=== PATIENT | male | born 1975 | race Native Hawaiian/Other Pacific Islander ===

== ENCOUNTER 2020-09-13 06:08 | Outpatient (REF) | payer OTHER, SELFPAY ==
[2020-09-13 07:32] LABS: Alanine Aminotransferase 15 U/L (0-40); Albumin Level 4.5 g/dL (3.5-5.0); Alkaline Phosphatase 87 U/L (39-117); Anion Gap 10 (12-20); Aspartate Amino Transferase 16 U/L (5-37); Bilirubin Total 1.1 mg/dL (0.0-1.0); Blood Urea Nitrogen 13 mg/dL (9-16); Calcium 9.4 mg/dL (8.4-10.2); Carbon Dioxide 31 mmol/L (22-29); Chloride 104 mmol/L (96-108); Cholesterol 138 mg/dL; Estimated Glomerular Filt Rate > 60; Glucose Fasting 92 mg/dL (60-99); HDL Cholesterol 33 mg/dL; LDL Cholesterol Calculated 83 mg/dl; Potassium 4.8 mmol/L (3.3-5.1); Sodium 140 mmol/L (135-145); Total Protein 7.4 g/dL (6.5-8.0); Triglycerides 112 mg/dL
[2020-09-13 07:33] LABS: Estimated Average Glucose 105 mg/dL; Hemoglobin A1c % 5.3 %
[2020-09-13 07:55] LABS: TSH reflex Free T4 0.73 uIU/mL (0.32-4.0)
== END 2020-09-13 06:09 | disposition home or self-care (01) ==
LOC: HO.LAB 06:08
PROVIDERS: PCP Physician Assistant; Visit Provider Physician Assistant
DX: Z13.1 Encounter for screening for diabetes mellitus (principal); I10 Essential (primary) hypertension; E78.5 Hyperlipidemia, unspecified; E66.09 Other obesity due to excess calories; Z68.35 Body mass index [BMI] 35.0-35.9, adult
CPT/HCPCS: 36415; 80053; 80061; 83036; 84443

== ENCOUNTER 2022-04-22 07:40 | Outpatient (REF) | payer OTHER, SELFPAY ==
[2022-04-22 08:00] LABS: Hematocrit 47.8 % (42.0-52.0); Hemoglobin 15.9 g/dl (14.0-18.0); Mean Corpuscular HGB Conc 33.3 g/dl (31.0-36.0); Mean Corpuscular Hemoglobin 30.8 pg (27.0-33.0); Mean Corpuscular Volume 92.6 fL (80.0-98.0); Mean Platelet Volume 8.5 fL (9.4-12.4); Platelet Count 247 X10*3/uL (160-400); Red Blood Count 5.16 X10*6/uL (4.60-5.80); Red Cell Distribution Width 12.7 % (11.0-16.0); White Blood Count 10.9 X10*3/uL (4.8-10.8)
[2022-04-22 08:38] LABS: Alanine Aminotransferase 20 U/L (0-40); Albumin Level 4.4 g/dL (3.5-5.0); Alkaline Phosphatase 85 U/L (39-117); Anion Gap 14 (12-20); Aspartate Amino Transferase 18 U/L (5-37); Bilirubin Total 0.7 mg/dL (0.0-1.0); Blood Urea Nitrogen 13 mg/dL (9-16); Calcium 9.4 mg/dL (8.4-10.2); Carbon Dioxide 24 mmol/L (22-29); Chloride 108 mmol/L (96-108); Cholesterol 145 mg/dL; Estimated Glomerular Filt Rate > 60; Glucose Fasting 95 mg/dL (60-99); HDL Cholesterol 36 mg/dL; LDL Cholesterol Calculated 88 mg/dl; Potassium 4.7 mmol/L (3.3-5.1); Sodium 141 mmol/L (135-145); Total Protein 7.1 g/dL (6.5-8.0); Triglycerides 108 mg/dL
[2022-04-22 08:44] LABS: Prostate Specific Antigen Scr 0.97 ng/mL (<0.05-4.0); TSH reflex Free T4 0.46 uIU/mL (0.32-4.0)
== END 2022-04-22 07:41 | disposition home or self-care (01) ==
LOC: HO.LAB 07:40
PROVIDERS: PCP Physician Assistant; Visit Provider Physician Assistant
DX: Z13.1 Encounter for screening for diabetes mellitus (principal); Z12.5 Encounter for screening for malignant neoplasm of prostate
CPT/HCPCS: 36415; 80053; 80061; 84153; 84443; 85027

== ENCOUNTER → 2022-07-03 14:34 | Outpatient (BNVA) | payer OTHER, SELFPAY | PROVIDERS: PCP Physician Assistant; Visit Provider Internal Medicine | DX: Z13.89 Encounter for screening for other disorder (principal) ==

== ENCOUNTER 2022-08-20 06:36 | Day surgery (SDC) | payer OTHER, SELFPAY ==
[2022-08-13 14:43] VITALS: BMI 35.4
[2022-08-20] MEDS: Lactated Ringers 1,000 ML 50 ML IVCONT (06:58)
[2022-08-20 07:11] VITALS: BP 121/84; PULSE 67; RESP 18; TEMP 36.7; O2SAT 96
--- NOTE | 2022-08-20 07:49 | MHC.SHP ---
Pre-Procedural Eval Section A Date of Service: 08/20/22 Section B Chief Complaint: Abnormal weight loss Details of Present Illness: Medical History Umbilical hernia Surgical History History of appendectomy Relevant Family History (Specify if Yes): No Relevant Social History: None Present Medications: see Short Stay Collaborative assessment Allergies: Allergies Allergy/AdvReac Type Severity Reaction Status Date / Time Penicillins [PENICILLINS] Allergy Unknown UNKOWN Verified 08/20/22 06:50 Review of Systems Review of Systems Comment: 10 point ROS as above Exam Exam Comment: Gen appear: No acute distress HEENT: no icterus Chest: No overt resp distress Abd: soft, nontender, nondistended Psych: Stable affect, answering questions appropriately Neuro: A/Ox3 noted to move all extremities spontaneously Ext: no peripheral edema Plan Diagnosis/Plan: Unchanged I have reviewed the history and physical and performed a pertinent physical examination on my patient. No changes have occurred unless specified. Time Spent With Patient Time: Total time managing care of this patient today ____ minutes.
--- NOTE | 2022-08-20 07:51 | P.OP_ITS ---
Operative Note Operative Note Date of Service: 08/20/22 Narrative: Procedure:?Esophagogastroduodenoscopy and Colonoscopy Indication:?Dysphagia, positive cologuard Endoscopist:?Padmini Neil Anesthesia Provider:?Dr Lizeth Gregg Anesthesia type:?MAC Instrument:?Olympus GIF-H190, PCF-H190L EGD Procedure:?? The procedure, indications, preparation and potential complications were reviewed with the patient, who indicated understanding and gave written informed consent to proceed. A physical exam was performed. The endoscope was introduced through the mouth, and advanced to the second part of the duodenum. The mucosa was carefully examined on slow withdrawal of the endoscope. The patient tolerated the procedure well. There were no immediate complications.? ? EGD Findings:? * Esophagus:?Normal esophageal mucosa. The Z line was at 42 cm and irregular but less than < 1cm. There was a hiatal hernia with with the diaphragmatic pinch at 45 cm. * Stomach:? Erosions and ulceration was noted in the antrum. Random cold forceps biopsies were obtained to rule out H pylori. Retroflexion confirmed the size and morphology of the hernia with grade I Hill classification. * Duodenum:? Normal mucosa was noted in the whole of the examined duodenum. Cold forceps biopsies were up pain from the duodenal bulb and 2nd part of the duodenum to rule out celiac sprue. Colonoscopy Procedure:? The patient was then turned for the colonoscopy. A digital rectal exam was performed which was normal. The colonoscope was then inserted through the anus and advanced through the colon to the cecum at 80 cm. Appendiceal orifice and ileocecal valve are identified. Mucosa was carefully examined under high definition white light as the instrument was slowly withdrawn in a retrograde panoramic fashion. Ascending colon was intubated twice. Retroflexion was performed in rectum. The procedure was not difficult. There were no immediate obvious complications. The quality of the prep was BBPS: 3+2+3 = adequate Withdrawal time 12 minutes. Limitations: No limitations.? Findings: Mucosa: Normal to cecum. Protruding lesions: * Medium internal hemorrhoids without stigmata of recent bleeding. Excavated lesions: * Mild to moderate diverticulosis of sigmoid colon. Impression:? * Normal esophagus * Hiatal hernia * Gastritis (biopsy) * Normal duodenum (biopsy) * Good prep * Normal colon mucosa * Diverticulosis * Internal hemorrhoids Recommendations:?? * Follow path results. * If H pylori noted on histology, eradication therapy will be prescribed. * Avoid NSAIDs * Repeat colonoscopy in 10 years for asymptomatic CRC screening. ? This was reviewed with the patient.
[2022-08-20 08:30] VITALS: BP 108/61; PULSE 86; RESP 18; TEMP 36.3; O2SAT 108
[2022-08-20 08:45] VITALS: BP 102/62; PULSE 86; RESP 18; TEMP 36.1; O2SAT 99
--- NOTE | 2022-08-20 09:06 | P.CONAN_ITS ---
[facility] Active Problems Active Problems: All Active Problems (Updated 08/13/22 @ 14:18 by Sari Childers RN) Lumbar radicular pain (Acute) Erectile dysfunction (Acute) Screening for diabetes mellitus (DM) (Acute) Obese (Acute) Pharyngitis (Acute) Smoker (Acute) GERD (gastroesophageal reflux disease) (Acute) Acute exacerbation of chronic low back pain (Acute) Depression (Acute) Screening for colon cancer (Acute) Adult general medical exam (Acute) Unintentional weight loss (Acute) Early satiety (Acute) Past Medical History Medical History Depression GERD (gastroesophageal reflux disease) Low back pain Umbilical hernia Family History Family History Father No problems noted. Mother Osteoarthritis Maternal Aunt Cancer Family history of problems with anesthesia: No Surgical History Surgical History History of appendectomy History of Problems with Anesthesia: No Social History Social History Housing: House Are you a primary rn progressive care unit to a significant other at home: No Do you presently have visiting nurse or other home services: No Alcohol intake: current Alcohol intake frequency: holidays/special occasions only Patient Tobacco Use Status: Current everyday Tobacco user Tobacco use type: Cigarette Cigarettes Per Day: 6 Years Smoked: 30 e-Cigarette/Vaping Use: Never Used Use of substances other than those prescribed or required for medical reasons: No Have you been hit, kicked, punched, or otherwise hurt by someone within the past year? If so, by whom?: No Are you DNR?: No Advance Directives: No Advance Directives Information Provided: Yes (brochure mailed) Advance Directives on File: No Recently lost weight without trying: Yes How much weight loss: 2-13 pounds Eating poorly because of decreased appetite: No Nutrition screen score: 3 Nutrition Risks: No Nutritional Risk Poor oral hygiene: No service: No Current occupational status: employed Cognitive needs: No Hearing needs: No Vision needs: No Meds Allergies Allergy/AdvReac Type Severity Reaction Status Date / Time Penicillins [PENICILLINS] Allergy Unknown UNKOWN Verified 08/20/22 06:50 Active Medications: Current Medications Lactated Ringer's (Lr) 1,000 mls @ 50 mls/hr IVCONT .Q20H MARGOTH Last Admin: 08/20/22 06:58 Dose: 50 mls/hr Home Medications Medication Instructions Recorded Confirmed Last Taken Type tramadol 50 mg tablet 50 mg PO BID 07/03/22 08/13/22 Unknown History buspirone 5 mg tablet 1 tab PO BID anxiety 08/20/22 08/20/22 08/20/22 History Exam Exam Date and Time: August 20, 2022 0906 Height,Weight and Vital Signs: Height 5 ft 11 in Weight 115.212 kg Last Vital Signs Temp 97.0 F 08/20/22 08:45 Pulse 86 08/20/22 08:45 Resp 18 08/20/22 08:45 BP 102/62 08/20/22 08:45 Pulse Ox 99 08/20/22 08:45 O2 Del Method 08/20/22 08:45 O2 Flow Rate 6 08/20/22 08:30 Airway Mallampati Class: I TM Dist: >3cm Neck ROM: Full Heart: RR Lungs: cta Assessment and Plan Assessment Anesthesia Assessment: Anesthesia Plan Discussed Final Anesthetic Review Family History of Problems with Anesthesia: No History of Problems with Anesthesia: No NPO: Yes ASA Class: II Final Preanesthetic Review: No Changes in Pt Med Stat, Meds/Allgs Chart Reviewed, Consent Obtained/Reviewed and Anes Risks/Benef Reviewed Patient Risk: Low Procedure Risk: Low Assessment/Block/Sedation in SS: Assess/Block/Sedation-SS Anesthetic Plan Anesthetic Plan: MAC: Disposition: Standard PACU
== END 2022-08-20 09:25 | disposition home or self-care (01) ==
PROVIDERS: PCP Physician Assistant; Visit Provider Internal Medicine
PROC: (CPT 45378; principal; 2022-08-20 07:30)
DX: R19.5 Other fecal abnormalities (principal); K57.30 Diverticulosis of large intestine without perforation or abscess without bleeding; K64.8 Other hemorrhoids; R63.4 Abnormal weight loss; R13.10 Dysphagia, unspecified; K22.89 Other specified disease of esophagus; K21.9 Gastro-esophageal reflux disease without esophagitis; K29.50 Unspecified chronic gastritis without bleeding; B96.81 Helicobacter pylori [H. pylori] as the cause of diseases classified elsewhere; K44.9 Diaphragmatic hernia without obstruction or gangrene; K42.9 Umbilical hernia without obstruction or gangrene; Z79.899 Other long term (current) drug therapy; Z88.0 Allergy status to penicillin; F17.210 Nicotine dependence, cigarettes, uncomplicated
CPT/HCPCS: 45378; 43239; 88305; 88342

== ENCOUNTER → 2022-09-04 13:49 | Outpatient (BNVA) | payer OTHER, SELFPAY | PROVIDERS: PCP Physician Assistant; Visit Provider Internal Medicine | DX: Z13.89 Encounter for screening for other disorder (principal) ==

== ENCOUNTER 2022-09-21 09:06 | Outpatient (REF) | payer OTHER, SELFPAY ==
[2022-09-23 15:20] LABS: H Pylori Breath Test Negative (Negative)
== END 2022-09-21 09:07 | disposition home or self-care (01) ==
LOC: HO.LNP 09:06
PROVIDERS: PCP Physician Assistant; Visit Provider Internal Medicine
DX: A04.8 Other specified bacterial intestinal infections (principal)
CPT/HCPCS: 83013

== ENCOUNTER 2023-01-05 14:59 | Outpatient (AMB) | payer OTHER, SELFPAY ==
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
[2023-01-05 15:03] VITALS: BP 142/90; PULSE 90; O2SAT 99; BMI 34.0
== END 2023-01-05 15:36 | disposition home or self-care (01) ==
PROVIDERS: PCP Physician Assistant; Visit Provider Physician Assistant
DX: M54.16 Radiculopathy, lumbar region (principal)
CPT/HCPCS: 99213

== ENCOUNTER 2023-01-05 15:39 | Outpatient (REF) | payer OTHER, SELFPAY ==
--- NOTE | ~2023-01-05 | XR_ITS ---
EXAMINATION: XR LUMBOSACRAL SPINE WITH OBLIQUES CLINICAL INFORMATION: Radiculopathy, lumbar region COMPARISON: CT lumbar spine 12/24/2018 TECHNIQUE: AP, both oblique, and lateral views of the lumbar spine. Lateral view of the lumbosacral junction. FINDINGS: The vertebral body heights are preserved, no fracture. There is mild degenerative disc disease and multilevel mild spurring. There is facet arthropathy in the lower lumbar spine. Subtle sclerosis in the anterior L1 vertebral body noted, given differences in imaging technique unchanged from 2019 CT scan. Sacroiliac joints are intact. XR/XR lumbar spine 4V min IMPRESSION: Mild degenerative disc disease and moderate facet arthropathy in the lower lumbar spine. No acute process. Subtle sclerosis in the anterior L1 vertebral body not appreciably changed from CT of the lumbar spine given differences in technique.
== END 2023-01-05 15:40 | disposition home or self-care (01) ==
LOC: HO.XRAY 15:39
PROVIDERS: PCP Physician Assistant; Visit Provider Physician Assistant
DX: M54.16 Radiculopathy, lumbar region (principal)
CPT/HCPCS: 72110

== ENCOUNTER 2023-04-27 07:10 | Outpatient (REF) | payer OTHER, SELFPAY ==
[2023-04-27 07:31] LABS: Hematocrit 49.4 % (42.0-52.0); Hemoglobin 16.3 g/dl (14.0-18.0); Mean Corpuscular Volume 93.9 fL (80.0-98.0); Mean Platelet Volume 8.8 fL (9.4-12.4); Platelet Count 233 X10*3/uL (160-400); Red Blood Count 5.26 X10*6/uL (4.60-5.80); White Blood Count 14.2 X10*3/uL (4.8-10.8)
[2023-04-27 08:05] LABS: Alanine Aminotransferase 24 U/L (0-40); Albumin Level 4.2 g/dL (3.5-5.0); Alkaline Phosphatase 86 U/L (39-117); Anion Gap 15 (12-20); Aspartate Amino Transferase 18 U/L (5-37); Bilirubin Total 0.8 mg/dL (0.0-1.0); Blood Urea Nitrogen 14 mg/dL (9-16); Calcium 9.5 mg/dL (8.4-10.2); Carbon Dioxide 24 mmol/L (22-29); Chloride 110 mmol/L (96-108); Estimated Glomerular Filt Rate > 60; Glucose Fasting 98 mg/dL (60-99); Potassium 4.5 mmol/L (3.3-5.1); Sodium 144 mmol/L (135-145); Total Protein 7.1 g/dL (6.5-8.0)
[2023-04-27 08:25] LABS: Prostate Specific Antigen Scr 1.05 ng/mL (<0.05-4.0)
== END 2023-04-27 07:11 | disposition home or self-care (01) ==
LOC: HO.LAB 07:10
PROVIDERS: PCP Physician Assistant; Visit Provider Physician Assistant
DX: Z12.5 Encounter for screening for malignant neoplasm of prostate (principal); Z13.1 Encounter for screening for diabetes mellitus; I10 Essential (primary) hypertension; K29.70 Gastritis, unspecified, without bleeding
CPT/HCPCS: 36415; 80053; 84153; 85027

== ENCOUNTER 2023-04-28 10:28 | Outpatient (AMB) | payer OTHER, SELFPAY ==
[2023-04-28 10:45] VITALS: BP 144/94; PULSE 62; RESP 16; O2SAT 98; BMI 35.0
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
== END 2023-04-28 11:40 | disposition home or self-care (01) ==
PROVIDERS: Visit Provider Physician Assistant
DX: Z00.00 Encounter for general adult medical examination without abnormal findings (principal); I10 Essential (primary) hypertension; M54.16 Radiculopathy, lumbar region; F17.210 Nicotine dependence, cigarettes, uncomplicated; G47.00 Insomnia, unspecified; E66.09 Other obesity due to excess calories; Z68.35 Body mass index [BMI] 35.0-35.9, adult; D72.829 Elevated white blood cell count, unspecified
CPT/HCPCS: 99396; 99406

== ENCOUNTER 2023-10-27 08:58 | Outpatient (AMB) | payer OTHER, SELFPAY ==
[2023-10-27 09:04] VITALS: BP 154/98; PULSE 68; O2SAT 99; BMI 35.4
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
== END 2023-10-27 09:46 | disposition home or self-care (01) ==
PROVIDERS: PCP Physician Assistant; Visit Provider Physician Assistant
DX: I10 Essential (primary) hypertension (principal); M54.16 Radiculopathy, lumbar region; G47.00 Insomnia, unspecified; D72.829 Elevated white blood cell count, unspecified; F17.210 Nicotine dependence, cigarettes, uncomplicated
CPT/HCPCS: 99214; 99406

== ENCOUNTER 2023-12-08 09:18 | Outpatient (AMB) | payer OTHER, SELFPAY ==
[2023-12-08 09:23] VITALS: BP 148/92; PULSE 72; O2SAT 97; BMI 35.5
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
== END 2023-12-08 09:55 | disposition home or self-care (01) ==
PROVIDERS: PCP Physician Assistant; Visit Provider Physician Assistant
DX: F17.200 Nicotine dependence, unspecified, uncomplicated (principal); I10 Essential (primary) hypertension; M54.16 Radiculopathy, lumbar region
CPT/HCPCS: 99214; 99406

== ENCOUNTER 2024-01-04 08:51 | Outpatient (AMB) | payer OTHER, SELFPAY ==
[2024-01-04 09:10] VITALS: BP 130/80; PULSE 84; TEMP 36.6; O2SAT 98; BMI 35.4
--- NOTE | 2024-01-04 09:10 | MHC.OFFWIV ---
Intake Vital Signs 01/04/24 09:10 Height 5 ft 11 in Weight 254 lb BMI 35.4 BP 130/80 Blood Pressure Location Rt brachial Position Sitting Pulse 84 Pulse Source Pulse Oximeter Temp 97.9 F Temp Source Temporal Artery Scan Pulse Oximetry (%) 98 Oxygen Delivery Method Room Air Intake Visit Reasons: Possible Covid [phone] Intake Note: pt is here for possible covid postive, has covid and feels like he may be positive also Patient Tobacco Use Status: Current everyday Tobacco user Allergies Penicillins [PENICILLINS] Allergy (Unknown, Verified 01/04/24 09:11) UNKOWN Do you need a note to return to daycare/school/sports/work: No HPI HPI Comments History of Present Illness Details Patient is a 48-year-old male complaining of an itchy throat x1 day. He states his went to [place] and came home 4 days ago then started feeling sick 3 days ago and then yesterday tested positive for COVID. He states he really has no other symptoms besides an itchy throat but he is concerned he is developing COVID. 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 He denies cough, headache, fever, head congestion, sinus pain, ear pain, shortness of breath or wheezing. COUNTS INCLUDE 234 BEDS AT THE [facility] Medical History Low back pain GERD (gastroesophageal reflux disease) Depression Umbilical hernia Surgical History Hx of colonoscopy History of esophagogastroduodenoscopy (EGD) History of appendectomy Family History Father No problems noted. Mother Osteoarthritis Maternal Aunt Cancer Social History Housing: House Are you a primary rn care manager to a significant other at home: No Do you presently have visiting nurse or other home services: No Alcohol intake: current Alcohol intake frequency: holidays/special occasions only Alcohol type: beer Patient Tobacco Use Status: Current everyday Tobacco user Tobacco use type: Cigarette Cigarettes Per Day: 7 Years Smoked: 30 e-Cigarette/Vaping Use: Never Used service: No Current occupational status: employed Cognitive needs: No Hearing needs: No Vision needs: No Review of Systems Const All systems reviewed & are unremarkable except as noted in HPI and below Physical Exam Vital Signs: Last Vital Signs Temp 97.9 F 01/04/24 09:10 Pulse 84 01/04/24 09:10 BP 130/80 01/04/24 09:10 Pulse Ox 98 01/04/24 09:10 Oxygen Delivery Method Room Air 01/04/24 09:10 BMI result Body Mass Index 35.4 Const General: cooperative, healthy appearing, comfortable, no acute distress and well developed Orientation/consciousness: patient oriented x3 Limitations: no limitations HEENT Head: Yes normal to inspection General nose exam: Normal external nose present and Normal nares present Face and sinus: Yes normal facial exam Mouth: Normal oral and palatal mucosa present and moist mucous membranes Teeth and gingiva: dentition normal Throat: Yes posterior oropharynx normal, Yes tonsils normal and Yes uvula midline Eyes General: appearance normal, both eyes and all related structures Neck Neck: Yes normal visual inspection, Yes full ROM and Yes no lymphadenopathy Resp Effort & Inspection: normal respiratory effort and able to speak in complete sentences Skin General skin exam: no rashes or lesions noted Neuro General: patient oriented x3 Extrem General: Yes normal to inspection Assessment & Plan Assessment & Plan (1) Sore throat: Code(s): J02.9 - Acute pharyngitis, unspecified Plan: Tested for flu COVID and RSV, told patient we could send the Paxlovid prescription if he becomes symptomatic in the next couple of days. Also will write a work note if he tests positive. Plan see above Orders: Orders SARS-CoV2/FLU/RSV Today J06.9 - Acute upper respiratory infection, unspecified Coding Level of Care Code Est Pt Level 3 (06600) Diagnoses Sore throat J02.9
== END 2024-01-04 09:49 | disposition home or self-care (01) ==
PROVIDERS: PCP Physician Assistant; Visit Provider Physician Assistant
DX: J02.9 Acute pharyngitis, unspecified (principal); Z20.822 Contact with and (suspected) exposure to COVID-19
CPT/HCPCS: 99213

== ENCOUNTER 2024-01-04 09:26 | Outpatient (REF) | payer OTHER, SELFPAY ==
[2024-01-04 11:28] LABS: Influenza A PCR NEGATIVE (Negative); Influenza B PCR NEGATIVE (Negative); Resp Syncy Virus RNA Qual PCR NEGATIVE (Negative); SARS COV2 PCR INHOUSE POSITIVE (Negative)
== END 2024-01-04 09:27 | disposition home or self-care (01) ==
LOC: HO.LAB 09:26
PROVIDERS: Visit Provider Physician Assistant
DX: J06.9 Acute upper respiratory infection, unspecified (principal)
CPT/HCPCS: 0241U

== ENCOUNTER 2024-01-26 09:09 | Outpatient (AMB) | payer OTHER, SELFPAY ==
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
[2024-01-26 09:48] VITALS: BP 154/106; PULSE 70; O2SAT 97; BMI 35.6
== END 2024-01-26 10:01 | disposition home or self-care (01) ==
PROVIDERS: PCP Physician Assistant; Visit Provider Physician Assistant
DX: F17.200 Nicotine dependence, unspecified, uncomplicated (principal); I10 Essential (primary) hypertension; M54.16 Radiculopathy, lumbar region
CPT/HCPCS: 99214

== ENCOUNTER 2024-03-08 09:23 | Outpatient (AMB) | payer OTHER, SELFPAY ==
[2024-03-08 09:36] VITALS: BP 124/76; PULSE 96; O2SAT 98; BMI 35.2
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
== END 2024-03-08 10:19 | disposition home or self-care (01) ==
PROVIDERS: PCP Physician Assistant; Visit Provider Physician Assistant
DX: F17.200 Nicotine dependence, unspecified, uncomplicated (principal); I10 Essential (primary) hypertension; M54.16 Radiculopathy, lumbar region
CPT/HCPCS: 99214; 99406

== ENCOUNTER 2024-07-27 08:00 | Outpatient (RCR) | payer OTHER, SELFPAY ==
--- NOTE | 2024-07-04 08:46 | MHC.PT.EP ---
[facility] [place] Office [place] Office [place] Office [address] Mariaelena Gambino [address] [phone] F: [phone] F: [phone] F: [phone] F: [phone] Physical Therapy Plan of Care Date of Evaluation: 07/04/24 Date of Surgery: Diagnosis: This is a 49 yo male presenting to skilled PT with a script for radiculopathy, lumbar region. Assessment: This is a 49 yo male presenting to skilled PT with a script for radiculopathy, lumbar region. Patient reporting low back/mid back pain ongoing now for 6 years that is on and off again. Pain is located across the low and mid back, it is dull in nature. Pain increases with quick movements, standing at work or with cooking, bending forward. Pain does not improve with anything. He has had PT for this in the past on multiple occasions but it did not improve much. He reports occasional use of HEP (bending forward, crunches for which he was instructed on in the past). Denies radiating symptoms. He has never seen a back/ortho specialist before. He has used tramadol, MH and gotten new shoes to trial for pain relief. Assessment reveals pain that ranges from up to a 6/10 at the worst. Patient demos decreased lumbar and ROM, strength of core and back as well as B LE, TTP at lumbar surrounding soft tissues throughout L1-4 but is tender at the thoracic spine as well and impaired posture with forward head and rounded shoulders, W JAVIER and ER'd at the hips. Based on functional limitations, impaired QOL and pain tolerance patient is a good candidate for skilled PT 2x/wk for 4wks. Frequency and Duration: The patient will be seen 2x/wk for 4wks Short Term Goals: Pt will demonstrate improved postural awareness and understanding of core engagement with supine and standing tasks without cues throughout session to improve overall back safety in 2 weeks. Pt will demonstrate centralization of sx in 2 weeks. Pt will continue to reinforce precautions, sitting, standing and ADL modifications with proper body mechanics in 2 wks. Dietary Tech Goals: Pt will demonstrate improved outcome measure by 5 points in 4 weeks for improved functional mobility. Pt will demonstrate ability to bend and lift WNL min to no pain for household tasks in 4 wks. Pt will be I in HEP and compliant in 4wks Treatment Plan: Modalities to reduce pain, spasms and effusion. Manual therapy to restore motion and function. Therapeutic exercise to improve strength and flexibility. Neuromuscular re-education for posture and balance. Therapeutic activities to return to functional activities of daily living. Electronically signed by: Margy Hodges, PT Please sign and return to therapist. Thank you for your referral.
--- NOTE | 2024-08-28 07:07 | MHC.PT.DC ---
[facility] [place] Office [place] [facility] [place] Office [address] Mariaelena Gambino [address] [phone] F: [phone] F: [phone] F: [phone] F: [phone] Physical Therapy Discharge Report Diagnosis: This is a 49 yo male presenting to skilled PT with a script for radiculopathy, lumbar region. Date of Surgery: Date of Evaluation: 07/04/24 Date of Discharge: 08/28/24 Treatments to Date: 5 Cancellations to Date: 0 No Shows to Date: 0 Discharge Status: Independent with HEP Patient Elected to Stop Discharge Summary: Pt came to 5 sessions of PT. At his last scheduled appointment he was educated on no more remaining scheduled appointments. He had stated that he would like to keep coming but did not stop at the front tender to schedule and did not return for over 30 days thus chart was closed. Patient has a sufficient HEP to continue on his own at this time. DC to HEP. Electronically signed by: Margy Hodges PT Please sign and return to therapist. Thank you for your referral.
== END 2024-08-28 07:08 | disposition home or self-care (01) ==
LOC: HO.PTCHIC 08:00
PROVIDERS: PCP Physician Assistant; Visit Provider Physician Assistant
DX: M51.9 Unspecified thoracic, thoracolumbar and lumbosacral intervertebral disc disorder (principal); M54.16 Radiculopathy, lumbar region
CPT/HCPCS: 97014; 97110; 97140; 97162

== ENCOUNTER 2024-08-10 07:20 | Outpatient (REF) | payer OTHER, SELFPAY ==
[2024-08-10 08:38] LABS: Alanine Aminotransferase 26 U/L (0-40); Albumin Level 4.4 g/dL (3.5-5.0); Alkaline Phosphatase 80 U/L (39-117); Anion Gap 13 (12-20); Aspartate Amino Transferase 22 U/L (5-37); Bilirubin Total 0.7 mg/dL (0.0-1.0); Blood Urea Nitrogen 16 mg/dL (9-16); Calcium 9.3 mg/dL (8.4-10.2); Carbon Dioxide 21 mmol/L (22-29); Chloride 109 mmol/L (96-108); Estimated Glomerular Filt Rate > 60; Glucose Fasting 94 mg/dL (60-99); Potassium 4.1 mmol/L (3.3-5.1); Sodium 139 mmol/L (135-145); Total Protein 7.7 g/dL (6.5-8.0)
[2024-08-10 08:59] LABS: Prostate Specific Antigen Scr 0.93 ng/mL (<0.05-4.0)
[2024-08-10 09:39] LABS: Creatinine Urine 230.68 mg/dL; Microalbum/Creatinine Ratio Ur 141.3 ug/mg cr (<30)
== END 2024-08-10 07:21 | disposition home or self-care (01) ==
LOC: HO.LAB 07:20
PROVIDERS: PCP Physician Assistant; Visit Provider Physician Assistant
DX: I10 Essential (primary) hypertension (principal); Z12.5 Encounter for screening for malignant neoplasm of prostate
CPT/HCPCS: 36415; 80053; 82043; 82570; 84153

== ENCOUNTER 2024-08-15 13:26 | Outpatient (AMB) | payer OTHER, SELFPAY ==
[2024-08-15 13:35] VITALS: BP 142/96; PULSE 87; TEMP 36.5; O2SAT 97; BMI 36.7
--- NOTE | 2024-08-15 13:35 | A.OFFPC_ITS ---
Vital Signs 08/15/24 13:35 Height 5 ft 11 in Weight 263 lb 6 oz BMI 36.7 BP 142/96 H Blood Pressure Location Lt brachial Position Sitting Pulse 87 Pulse Source Pulse Oximeter Temp 97.7 F Temp Source Temporal Artery Scan Pulse Oximetry (%) 97 Oxygen Delivery Method Room Air Intake Visit Reasons: Annual Physical, Est Patient Intake Note: Patient is here today for a physical. [employer] Required: No Accompanied by: Self / Same As Patient Allergies Penicillins [PENICILLINS] Allergy (Unknown, Verified 08/15/24 13:41) UNKOWN Medication List - Last Reconciled 08/15/24 by Jhoan Watts PA-C acetaminophen 500 mg PO Q6H 30 days bismuth subsalicylate 2 tabs PO QID 14 days buspirone 5 mg PO BID 90 days cyclobenzaprine 10 mg PO BEDTIME 14 days heating pads As directed lisinopril 5 mg PO DAILY 30 days naproxen 500 mg PO Q12H PRN nicotine 1 patch transdermal DAILY 14 days sertraline 25 mg PO DAILY sildenafil 100 mg PO DAILY 14 days tramadol 50 mg PO BID 7 days trazodone 50 mg PO BEDTIME PRN varenicline tartrate 1 mg PO BID 28 days Tobacco use date assessed: 10/27/23 Dental Screening Dental Screen Date: 10/27/23 HPI Annual Physical, Est Patient HPI Details Patient is a 49-year-old male here today a routine annual physical ? Patient has a past medical history significant for GERD, tobacco dependency, chronic lumbar spine pain, obesity. Hypertension: Patient's blood elevated today in office. Most recent microalbumin showing elevation. He does report at times having higher blood pressure readings at home though generally has been stable. He otherwise denies any headaches, chest discomfort, shortness for breath or dizziness. PLAN: Will increase his lisinopril to 10 mg for better blood pressure control and manage the microalbuminuria. Will recheck his microalbuminuria in 3 months consider Nephrology evaluation. .. .. Lumbar spine: Lumbar spine pain has been a chronic condition for him, does have disc disease in his spine. He has been recently in physical therapy though feels his pain relief is only short-lived.. Patient reports he does work a physically demanding job in uses tramadol before he goes in the work and has no pain. He reports his lower back pain events has become more frequent and he is concerned about this. He does report intermittent episodes of left lower extremity radiculopathy as well recently. He is apprehensive on seeing pain management for pain reduction modality. He is interested in further evaluation with repeat lumbar spine x-ray and MRI to evaluate for worsening disc herniation Smoker: He reports he has reduced his smoking down to 4 packs of cigarettes per week from 7 Packs He is proud about this. Colon cancer screening: Colonoscopy done in 2022, normal to repeat 10 years. Vaccines: COVID vaccine up-to-date, willing to get influenza, needs pneumonia vaccine though declines at this time [facility] Medical History (Updated 08/16/24 @ 07:31 by Jhoan Watts PA-C) Erectile dysfunction H. pylori infection COVID-19 virus infection Low back pain GERD (gastroesophageal reflux disease) Depression Umbilical hernia Surgical History Hx of colonoscopy History of esophagogastroduodenoscopy (EGD) History of appendectomy Family History (Updated 08/15/24 @ 13:45 by Jhoan Watts PA-C) Father No problems noted. Mother Osteoarthritis Alzheimer dementia Maternal Aunt Cancer Social History Housing: House Are you a primary health care marketing manager to a significant other at home: No Do you presently have visiting nurse or other home services: No Alcohol intake: current Alcohol intake frequency: holidays/special occasions only Alcohol type: beer Patient Tobacco Use Status: Current everyday Tobacco user Tobacco use type: Cigarette Cigarettes Per Day: 7 Years Smoked: 30 e-Cigarette/Vaping Use: Never Used service: No Current occupational status: employed Cognitive needs: No Hearing needs: No Vision needs: No Questionnaire Thrive Questionnaire Date Thrive assessed: 10/27/23 I am a: Patient What is your living situation today?: I have a steady place to live Within the past 12 months, did the food you bought not last and you didn't have the money to get more?: I choose not to answer this question Within the past 12 months, did you worry whether your food would run out before you got money to buy more?: I choose not to answer this question Do you have trouble paying for medicines?: I choose not to answer this question Do you have trouble getting transportation to medical appointments?: I choose not to answer this question Do you have trouble paying your heating and electricity bill?: I choose not to answer this question Do you have trouble taking care of your child, family member or friend?: I choose not to answer this question Do you have trouble with day-to-day activities such as bathing, preparing meals, shopping, managing finances, etc.?: I choose not to answer this question Are you currently unemployed and looking for a job?: I choose not to answer this question Are you interested in more education?: I choose not to answer this question Please select the resources that you would like help with: None Currently or been in a relationship where the following occur: I choose not to answer THRIVE Score: 0 AUDIT C Alcohol Use Questionnaire (AUDIT-C) 1. How often do you have a drink containing alcohol?: 2-4 times a month 2. How many drinks containing alcohol do you have on a typical day when you are drinking?: 5 or 6 3. How often do you have six or more drinks on one occasion?: Monthly Total Score: 6 JAKUB-7 AMB Questionnaire JAKUB-7 Date JAKUB - 7 assessed: 10/27/23 Feeling nervous, anxious, or on edge: 1 = Several days Not being able to stop or control worryin = Several days Worrying too much about different things: 1 = Several days Trouble relaxin = Several days Being so restless that it is hard to sit still: 1 = Several days Becoming easily annoyed or irritable: 1 = Several days Feeling afraid as if something awful might happen: 1 = Several days Total JAKUB-7 score (0-4 normal; 5-9 mild; 10-14 moderate; 15-21 severe): 7 Source: Developed by Drs. Darrell Lewis, Ainsley Aquino, Irwin Lora and colleagues, with an educational dalila from [employer]. JAKUB-7 Assessment Billing JAKBU-7 Assessment Tool: JAKUB-7 Assessment 90895 Review of Systems Const Denies body aches, Denies chills, Denies excessive sweating, Denies fatigue, Denies fever(s) and Denies headache(s) Eyes Denies blurry vision ENT Denies dysphagia, Denies vertigo, Denies dizziness, Denies headache(s), Denies hearing loss and Denies tinnitus Card Denies chest pain, Denies chest pain with activity, Denies syncope, Denies irregular heart rhythm and Denies dyspnea Resp Denies chest congestion, Denies cough, Denies hemoptysis, Denies dyspnea and Denies wheezing GI Denies abdominal pain, Denies melena, Denies hematochezia, Denies coffee ground emesis, Denies dysphagia, Denies diarrhea, Denies nausea and Denies vomiting Denies difficulty urinating, Denies dysuria, Denies urinary frequency, Denies urinary hesitancy and Denies urinary urgency Musc Denies arthralgias, Denies limited range of motion, Denies muscle cramps and Denies muscle weakness Skin/Breast Denies rash and Denies skin ulcer Neuro Denies Abnormal speech present, Denies confusion, Denies vertigo, Denies dizziness, Denies syncope, Denies headache(s), Denies memory loss and Denies seizure-like activity Psych Denies anxiety, Denies confusion, Denies depression, Denies memory loss, Denies panic attacks and Denies paranoia Endo Denies excessive sweating, Denies fatigue, Denies flushing, Denies polydipsia and Denies polyuria Aller/Immun Denies wheezing Physical exam (Primary Care) Vital Signs: Last Vital Signs Temp 97.7 F 08/15/24 13:35 Pulse 87 08/15/24 13:35 BP 142/96 H 08/15/24 13:35 Pulse Ox 97 08/15/24 13:35 Oxygen Delivery Method Room Air 08/15/24 13:35 BMI result Body Mass Index 36.7 BMI Assessment/Plan discussion: High BMI High, discussed plan: lifestyle, weight reduction, dietary and physical activity Tobacco/Smoking Status: Tobacco use Status Tobacco use date assessed 10/27/23 08/15/24 13:36 Patient Tobacco Use Status Current everyday Tobacco 08/15/24 13:36 Tobacco use type Cigarette 08/15/24 13:36 e-Cigarette/Vaping Use Never Used 08/15/24 13:36 Are you ready to quit: No Tobacco cessation counseling provided: Yes Items discussed: Nicotine replacement Relapse Prevention: discussed the importance of a supportive environment, dis cussed negative mood or depression after quitting, weight gain after smoking is common and discussed dietary, exercise and/or lifestyle changes Number of minutes spent counselin CPT code: 90725 - 4-10 Minutes Thrive Assessment: Date of Thrive Assessment Date Thrive assessed 10/27/23 08/15/24 13:36 Currently or been in a relationship where the following occur: I choose not to answer Const General: cooperative, comfortable, no acute distress, alert and awake; No confusion Orientation/consciousness: oriented to person, oriented to place, patient oriented x3 and No confusion HENMT Head: Yes normocephalic Ears: external ears normal and TM's normal bilaterally Face and sinus: No sinus tenderness Mouth: Normal oral and palatal mucosa present and tongue normal Teeth and gingiva: dentition normal and gingiva normal Throat: Yes posterior oropharynx normal, Yes tonsils normal and Yes uvula midline Eyes Conjunctivae: conjunctivae normal Sclerae: sclerae normal Pupils: Equal, round and reactive pupils present EOM: EOMs intact bilaterally Direct Ophthalmoscopy: No no photophobia Neck Neck: Yes no lymphadenopathy, No tender and Yes no JVD Thyroid: Thyroid normal Carotids: no bruits Chest Chest palpation & inspection: no tenderness Resp Effort & Inspection: normal respiratory effort, no audible wheezes, not labored and no stridor Auscultation: no crackles, no rales, no rhonchi and no wheezes Cardio Jugular venous distension: no JVD Rate: regular rate, not bradycardic and not tachycardic Rhythm: regular rhythm Bruits: no carotid bruits Peripheral pulses: Peripheral pulses 2+ throughout GI Inspection: Yes normal to inspection, No abdominal wall ecchymosis and No visible herniation Palpation (GI): Soft to palpation, nontender, no guarding, not rigid and No hepatosplenomegaly present Auscultation: normoactive bowel sounds General: Yes no CVA tenderness Back/Spine/Pelvis Other: LIMITED RANGE OF MOTION MORE SPINE DUE TO PAIN AND STIFFNESS Back: no CVA tenderness and No back tenderness Cervical Spine: cervical ROM normal Thoracic/Lumbar Spine: thoracic and lumbar spine normal to inspection, straight leg raise negative bilaterally, No thoraco-lumbar ROM limited and No lumbar spinal tenderness Skin Lesions: no lesions Rashes: no rashes Wounds: no wounds Neuro General: oriented to person, oriented to place, patient oriented x3, CN's II-XI intact bilaterally and No confusion Cranial nerves: Yes Equal, round and reactive pupils present and Yes Normal accommodation reflex present Cognition (Neuro): normal cognition Speech: No Abnormal speech present Gait exam (Neuro): Normal gait present Motor exam (neuro): 5/5 motor strength present throughout Extrem Right upper extremity: full ROM; no cyanosis Left upper extremity: full ROM; no cyanosis Right lower extremity: no edema Left lower extremity: no edema Psych Appearance: grossly normal Mental Status: mental status grossly normal Affect: normal affect Attitude: cooperative Thought process: Normal thought process present Office Procedures Flu Questionnaire Does the patient have a severe egg allergy?: No Does the patient have severe life threatening allergies?: No Does the patient have a fever or illness today?: No Has the patient ever had Guillain-Criders Syndrome?: No Has the patient ever had any past reaction to a flu shot?: No Immunizations Fluarix Triv [id number] (PF) 45 mcg (15 mcg x 3)/0.5 mL IM syringe Performing Provider: Jhoan Watts PA-C [facility] Administered by: JODI Velasco on 08/15/24 14:16 Dose Route Admin Location Dispensed Lot Number Expiration Date NDC African History Professor 0.5 mL IM Right Deltoid 0.5 mL [id number] 12/25/24 [id number] [employer] VIS Given Date VIS Provided VIS Publication Date 08/15/24 Single Vaccine 21 Eligibility Eligibility Date Funding Source Not [facility] Eligible 08/15/24 Private Coding Level of Care Code Est Pt Prev Care 40-64y(39731) Diagnoses Annual physical exam Z00.00 Primary hypertension I10 Hypertension type: primary hypertension Microalbuminuria R80.9 Lumbar vertebral syndrome M54.16 JAKUB (generalized anxiety disorder) F41.1 Tobacco dependence F17.200 Class 2 obesity E66.812 Additional Codes JAKUB-7 Assessment Billing - JAKUB-7 Assessment Tool: JAKUB-7 Assessment 80967 ([id number]) Vital Signs *Quality* - CPT code: 58158 - 4-10 Minutes ([id number]) Assessment & Plan Assessment & Plan (1) Annual physical exam: Code(s): Z00.00 - Encounter for general adult medical examination without abnormal findings Category: Medical Plan: As per HPI (2) HTN (hypertension): Code(s): I10 - Essential (primary) hypertension Category: Medical Qualifiers: Hypertension type: primary hypertension Qualified Code(s): I10 - Essential (primary) hypertension Plan: Patient's blood pressure elevated today in office. Has been noted pretty significant microalbuminuria. Will increase his lisinopril to 10 mg for better blood pressure control. Will recheck his microalbuminuria in 3 months and if still elevated will consider Nephrology evaluation. Goal blood pressures to be below 140/90. Again advised to quit smoking (3) Microalbuminuria: Code(s): R80.9 - Proteinuria, unspecified Category: Medical Plan: As above have noted pretty significant microalbuminuria. He does report a small amount of foam in the toilet while urinating. Will up titrate his lisinopril for better blood pressure control (4) Lumbar vertebral syndrome: Code(s): M54.16 - Radiculopathy, lumbar region Category: Medical Plan: As per HPI patient has been having worsening lower lumbar spine pain. Has been using tramadol with decent affect though has not been as effective as it once was. He is concerned as he has been having some left lower extremity radiculopathy in more stiffness in his low back upon minimal exertion. We did discuss the possibility of trying pain management for pain reduction modality though he is concerned about injections. Will further investigate with x-ray and lumbar spine MRI to evaluate for a worsening disc herniation. (5) JAKUB (generalized anxiety disorder): Code(s): F41.1 - Generalized anxiety disorder Category: Medical Plan: Patient jakub 7 score positive for anxiety. He reports he is having some marital issues which has been increasing his anxiety. He is interested in trying a as needed medication for his anxiety. Will try hydroxyzine 25 mg p.r.n.. Has not been using sertraline 25 mg and is willing start this medication a daily basis. (6) Tobacco dependence: Code(s): F17.200 - Nicotine dependence, unspecified, uncomplicated Category: Medical Plan: Patient does understand he needs to quit smoking. Does have nicotine patches available to him. He has tried Chantix in the past with some reduction in his smoking. (7) Class 2 obesity: Code(s): E66.812 - Obesity, class 2 Category: Medical Plan: Patient does understand his BMI is over 35 and will work on being more physically active and adapting to better eating habits to reduce his weight Plan Goal: Blood pressure to be below 140/90, stopped smoking Barriers: Adherence to physical activity and healthy eating habits, chronic low back pain. Orders: Orders Influenza [id number] Immunization 08/15/24 Z23 - Encounter for immunization Microalbumin, Random (w Creat) 08/15/24 R80.9 - Proteinuria, unspecified US renal BI 08/15/24 R80.9 - Proteinuria, unspecified MR lumbar spine wo con 08/15/24 M54.16 - Radiculopathy, lumbar region XR lumbar spine 2-3V 08/15/24 M54.16 - Radiculopathy, lumbar region Medications: New lisinopril 10 mg PO DAILY 90 tabs 1RF I10 - Essential (primary) hypertension hydroxyzine HCl 25 mg PO BID PRN 14 tabs 0RF itching 7 days F41.1 - Generalized anxiety disorder Refilled naproxen 500 mg PO Q12H PRN 60 tabs 3RF pain M54.16 - Radiculopathy, lumbar region cyclobenzaprine 10 mg PO BEDTIME 14 tabs 3RF 14 days M54.16 - Radiculopathy, lumbar region tramadol 50 mg PO BID 14 tabs 1RF 7 days M54.16 - Radiculopathy, lumbar region sertraline 25 mg PO DAILY 90 tabs 1RF F32.A - Depression, unspecified Discontinued lisinopril Discontinued Reason: Doctor's Order 5 mg PO DAILY 30 days 30 tabs 1RF I10 - Essential (primary) hypertension
== END 2024-08-15 14:22 | disposition home or self-care (01) ==
PROVIDERS: PCP Physician Assistant; Visit Provider Physician Assistant
DX: Z23 Encounter for immunization (principal)

== ENCOUNTER → 2024-08-15 13:26 | Outpatient (BNVA) | payer OTHER, SELFPAY | PROVIDERS: PCP Physician Assistant; Visit Provider Physician Assistant | DX: Z00.00 Encounter for general adult medical examination without abnormal findings (principal); Z23 Encounter for immunization; I10 Essential (primary) hypertension; R80.9 Proteinuria, unspecified; M54.16 Radiculopathy, lumbar region; F41.1 Generalized anxiety disorder; E66.812 Obesity, class 2; Z68.36 Body mass index [BMI] 36.0-36.9, adult; F17.210 Nicotine dependence, cigarettes, uncomplicated; Z79.899 Other long term (current) drug therapy | CPT/HCPCS: 90471; 90656; 96127 ==

== ENCOUNTER → 2024-08-23 18:18 | Outpatient (BNV) | payer OTHER, SELFPAY | PROVIDERS: PCP Physician Assistant; Visit Provider Radiology Diagnostic Radiology | DX: M48.062 Spinal stenosis, lumbar region with neurogenic claudication (principal) | CPT/HCPCS: 72148 ==

== ENCOUNTER 2024-08-23 18:28 | Outpatient (REF) | payer OTHER, SELFPAY ==
--- NOTE | ~2024-08-23 | MR_ITS ---
EXAMINATION: MR LUMBAR SPINE WITHOUT CONTRAST CLINICAL INFORMATION: Radiculopathy, lumbar region. Worsening pain in the right lower extremity. COMPARISON: MRI dated November 23, 2018. TECHNIQUE: MRI of the lumbar spine was obtained using routine sequences without contrast. FINDINGS: Last rib-bearing vertebra labeled T12. No bone marrow STIR signal abnormality. Multilevel marginal osteophyte formation and disc desiccation from T11 to S1 more conspicuous at L3-4 and L4-5 levels. Focal hyperintense T2 signal in the posterior intervertebral disc L3-4 likely annular fissure. 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 Grade 1 retrolisthesis L5-S1 likely degenerative. Conus medullaris ends at inferior endplate of T12 with normal signal. 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 T12-L1: No disc herniation. No neuroforamina stenosis. L1-2: Broad-based disc bulging. Facet joint hypertrophy. Bilateral neuroforamina narrowing. No compression upon neural elements. L2-3: Broad-based disc bulging. Facet joint hypertrophy. Bilateral neuroforamina narrowing. No compression upon neural elements. L3-4: Broad-based disc bulging. Facet joint and ligamentum flavum hypertrophy. Reduced AP diameter of the thecal sac and bilateral neuroforamina stenosis encroaching the L3 and L4 exiting nerve roots. L4-5: Broad-based disc bulging. Facet joint and ligamentum flavum hypertrophy. Reduced AP diameter of the thecal sac and neuroforamina encroaching the neural elements of the thecal sac and the exiting nerve roots. L5-S1: Broad-based disc bulging. Facet joint hypertrophy. Reduced AP diameter of the thecal sac. Prominent epidural fat. Bilateral neuroforamina narrowing encroaching the exiting nerve roots. No prevertebral compartment hematoma, mass or fluid collection. There is a 2.5 cm fluid signal characteristic lesion at the renal pelvis/or pelvic right kidney. No hydronephrosis in either kidney. MR/MR lumbar spine wo con IMPRESSION: Multilevel spondylosis more conspicuous at L3-4, L4-5 and L5-S1 resulting in central spinal canal and bilateral neuroforamina stenosis encroaching likely compressing the exiting nerve roots. Electronically signed by: Adams Mccarthy MD 08/24/2024 07:42 AM [facility]
== END 2024-08-23 18:29 | disposition home or self-care (01) ==
LOC: HO.MRI 18:28
PROVIDERS: PCP Physician Assistant; Visit Provider Physician Assistant
DX: M54.16 Radiculopathy, lumbar region (principal)
CPT/HCPCS: 72148

== ENCOUNTER 2024-09-01 09:21 | Outpatient (AMB) | payer OTHER, SELFPAY ==
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
[2024-09-01 09:34] VITALS: BMI 35.6
== END 2024-09-01 10:53 | disposition home or self-care (01) ==
PROVIDERS: PCP Physician Assistant; Referring Provider Physician Assistant; Visit Provider Physician Assistant
DX: M54.9 Dorsalgia, unspecified (principal)
CPT/HCPCS: 99204

== ENCOUNTER → 2024-09-01 09:21 | Outpatient (BNVA) | payer OTHER, SELFPAY | PROVIDERS: PCP Physician Assistant; Referring Provider Physician Assistant; Visit Provider Physician Assistant ==

== ENCOUNTER 2024-09-07 12:56 | Outpatient (REF) | payer OTHER, SELFPAY ==
--- NOTE | ~2024-09-07 | US_ITS ---
CLINICAL HISTORY: R80.9 - Proteinuria, unspecified US renal with Color Doppler Comparison: US - RENALS ONLY [id number] - 02/07/20 16:38 EDT Findings: Right kidney normal size and echotexture, 11.5 cm length. No nephrolithiasis or hydronephrosis Normal color flow. Renal cortical cyst midpole measuring 2.6 x 2.8 x 2.7 cm previously measuring 1.6 x 2.3 x 1.6 cm. Minimal internal echoes Left kidney normal size and echotexture, 11.1 cm length. No nephrolithiasis or hydronephrosis. Normal color flow. Renal cortical cysts mid to lower pole measuring 8 x 6 x 7 mm with minimal internal echoes previously measuring 5 x 4 x 5 mm. Impression: 1. Kidneys normal size and position with normal cortical width and echotexture. Bilateral renal cortical cysts with minimal complexity can be correlated with a dedicated CT or MRI abdomen with and without contrast renal protocol study. This document has been electronically signed by: Nito Valdivia MD on 09/08/2024 10:18:18
== END 2024-09-07 12:57 | disposition home or self-care (01) ==
LOC: HO.US 12:56
PROVIDERS: PCP Physician Assistant; Visit Provider Physician Assistant
DX: R80.9 Proteinuria, unspecified (principal)
CPT/HCPCS: 76775

== ENCOUNTER → 2024-09-07 12:58 | Outpatient (BNV) | payer OTHER, SELFPAY | PROVIDERS: PCP Physician Assistant; Visit Provider Radiology Diagnostic Radiology | DX: R80.9 Proteinuria, unspecified (principal) | CPT/HCPCS: 76775 ==

== ENCOUNTER 2024-11-16 08:33 | Outpatient (AMB) | payer OTHER, SELFPAY ==
[2024-11-16 08:38] VITALS: BP 142/94; PULSE 91; RESP 18; TEMP 36.2; O2SAT 98; BMI 36.4
--- NOTE | 2024-11-16 08:38 | MHC.PC.OV ---
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 Required: No Stone Carriage Operator: Not Required per policy Accompanied by: Self / Same As Patient Allergies Penicillins [PENICILLINS] Allergy (Unknown, Verified 11/16/24 08:58) UNKOWN Medication List - Last Reconciled 11/16/24 by Jhoan Watts PA-C buspirone 5 mg PO BID 90 days cyclobenzaprine 10 mg PO BEDTIME 14 days heating pads As directed hydroxyzine HCl 25 mg PO BID PRN 7 days lisinopril 10 mg PO DAILY naproxen 500 mg PO Q12H PRN sertraline 25 mg PO DAILY sildenafil 100 mg PO DAILY 14 days tramadol 50 mg PO BID 7 days trazodone 50 mg PO BEDTIME 90 days Tobacco use date assessed: 11/16/24 Dental Screening Dental Screen Date: 11/16/24 Did you have a dental visit in the last 12 months?: No Did you have a dental problem in the last 6 months where you did not have access to dental care?: No Was dental information given to patient?: No HPI 3 Month F/U HPI Details Patient is a 49-year-old male here today a follow-up visit ? Patient has a past medical history significant for GERD, tobacco dependency, chronic lumbar spine pain, obesity. .. Anxiety: He does report having increased anxiety as of late due to stress and personal matters. He has not been using sertraline consistently and does now understand to use it on a daily basis to help its effectiveness. Hypertension: Patient's blood elevated today in office. Most recent microalbumin showing elevation. He does report at times having higher blood pressure readings at home though generally has been stable. He otherwise denies any headaches, chest discomfort, shortness for breath or dizziness. PLAN: Will increase his lisinopril to 20 mg for better blood pressure control and manage the microalbuminuria. Will recheck his microalbuminuria in 3 months consider Nephrology evaluation. .. .. Lumbar spine: Has followed up with back specialist and did get a nerve block which significantly reduced his lower back pain. Does still have other pains in his has been knees and shoulders. Does use tramadol for his pain on a as needed basis though much less. Smoker: He reports he has reduced his smoking down to 4 packs of cigarettes per week from 7 Packs He is proud about this. [facility] Medical History Erectile dysfunction H. pylori infection COVID-19 virus infection Low back pain GERD (gastroesophageal reflux disease) Depression Umbilical hernia Surgical History Hx of colonoscopy History of esophagogastroduodenoscopy (EGD) History of appendectomy Family History Father No problems noted. Mother Osteoarthritis Alzheimer dementia Maternal Aunt Cancer Social History Housing: House Are you a primary nurse behavioral health care to a significant other at home: No Do you presently have visiting nurse or other home services: No Alcohol intake: current Alcohol intake frequency: holidays/special occasions only Alcohol type: beer Patient Tobacco Use Status: Current everyday Tobacco user Tobacco use type: Cigarette Cigarettes Per Day: 7 Years Smoked: 30 e-Cigarette/Vaping Use: Never Used service: No Current occupational status: employed Cognitive needs: No Hearing needs: No Vision needs: No Questionnaire PHQ-9 Over the last 2 weeks, how often have you been bothered by any of the following problems? 1. Little interest or pleasure in doing things: nearly every day 2. Feeling down, depressed, or hopeless: nearly every day 3. Trouble falling or staying asleep, or sleeping too much: nearly every day 4. Feeling tired or having little energy: nearly every day 5. Poor appetite or overeating: more than half the days 6. Feeling bad about yourself - or that you are a failure or have let yourself or your family down: nearly every day 7. Trouble concentrating on things, such as reading the newspaper or watching television: nearly every day 8. Moving or speaking so slowly that other people could have noticed. Or the opposite - being so fidgety or restless that you have been moving around a lot more than usual: nearly every day 9. Thoughts that you would be better off or of hurting yourself in some way: nearly every day Total score: 26 Depression Screening Interpretation: Positive Depression Screening Done: Yes 28543 - PHQ-9 Billing: Yes Source: Developed by Drs. Darrell Lewis, Ainsley Aquino, Irwin Lora and colleagues, with an educational dalila from [facility]. Thrive Questionnaire Date Thrive assessed: 11/16/24 I am a: Patient What is your living situation today?: I have a steady place to live Within the past 12 months, did the food you bought not last and you didn't have the money to get more?: I choose not to answer this question Within the past 12 months, did you worry whether your food would run out before you got money to buy more?: I choose not to answer this question Do you have trouble paying for medicines?: I choose not to answer this question Do you have trouble getting transportation to medical appointments?: I choose not to answer this question Do you have trouble paying your heating and electricity bill?: I choose not to answer this question Do you have trouble taking care of your child, family member or friend?: I choose not to answer this question Do you have trouble with day-to-day activities such as bathing, preparing meals, shopping, managing finances, etc.?: I choose not to answer this question Are you currently unemployed and looking for a job?: I choose not to answer this question Are you interested in more education?: I choose not to answer this question Please select the resources that you would like help with: None Currently or been in a relationship where the following occur: I choose not to answer THRIVE Score: 0 AUDIT C Alcohol Use Questionnaire (AUDIT-C) 1. How often do you have a drink containing alcohol?: 2-3 times a week 2. How many drinks containing alcohol do you have on a typical day when you are drinking?: 10 or more 3. How often do you have six or more drinks on one occasion?: Weekly Total Score: 10 Score Reviewed/Action Taken: Yes JAKUB-7 AMB Questionnaire JAKUB-7 Date JAKUB - 7 assessed: 11/16/24 Feeling nervous, anxious, or on edge: 3 = Nearly every day Not being able to stop or control worryin = Nearly every day Worrying too much about different things: 3 = Nearly every day Trouble relaxin = Nearly every day Being so restless that it is hard to sit still: 3 = Nearly every day Becoming easily annoyed or irritable: 3 = Nearly every day Feeling afraid as if something awful might happen: 3 = Nearly every day Total JAKUB-7 score (0-4 normal; 5-9 mild; 10-14 moderate; 15-21 severe): 21 Source: Developed by Drs. Darrell Lewis, Ainsley Aquino, Irwin Lora and colleagues, with an educational dalila from [facility]. JAKUB-7 Assessment Billing JAKUB-7 Assessment Tool: JAKUB-7 Assessment 16904 Review of Systems Const Denies headache(s) Eyes Denies loss of vision ENT Denies vertigo, Denies dizziness, Denies headache(s) and Denies sore throat Card Denies chest pain, Denies leg edema and Denies lightheadedness Resp Denies cough, Denies hemoptysis and Denies wheezing GI Denies abdominal pain, Denies melena, Denies constipation, Denies diarrhea and Denies vomiting Denies dysuria, Denies urinary frequency and Denies urinary urgency Musc Denies arthralgias, Denies joint swelling, Denies numbness and Denies tingling Neuro Denies Abnormal speech present, Denies behavioral changes, Denies vertigo, Denies dizziness, Denies headache(s), Denies loss of vision, Denies memory loss, Denies numbness and Denies tingling Psych Denies anxiety, Denies behavioral changes, Denies depression, Denies memory loss and Denies panic attacks Arnaldo/Lymph Denies easy bleeding and Denies easy bruising Aller/Immun Denies wheezing Physical exam (Primary Care) Vital Signs: Last Vital Signs Temp 97.1 F 11/16/24 08:38 Pulse 91 11/16/24 08:38 Resp 18 11/16/24 08:38 BP 142/94 H 11/16/24 08:38 Pulse Ox 98 11/16/24 08:38 Oxygen Delivery Method Room Air 11/16/24 08:38 BMI result Body Mass Index 36.4 BMI Assessment/Plan discussion: High BMI High, discussed plan: lifestyle, weight reduction, dietary and physical activity Tobacco/Smoking Status: Tobacco use Status Tobacco use date assessed 11/16/24 11/16/24 08:41 Patient Tobacco Use Status Current everyday Tobacco 11/16/24 08:41 Tobacco use type Cigarette 11/16/24 08:41 e-Cigarette/Vaping Use Never Used 11/16/24 08:41 Are you ready to quit: No Tobacco cessation counseling provided: Yes Items discussed: Nicotine replacement Relapse Prevention: discussed the importance of a supportive environment, discussed negative mood or depression after quitting, weight gain after smoking is common and discussed dietary, exercise and/or lifestyle changes Number of minutes spent counselin CPT code: 57136 - 4-10 Minutes PHQ-9: PHQ-9 Score PHQ-9: Total score 26 11/16/24 08:44 Depression Screening Interpretation: Positive Thrive Assessment: Date of Thrive Assessment Date Thrive assessed 11/16/24 11/16/24 08:41 Currently or been in a relationship where the following occur: I choose not to answer Const General: healthy appearing, no acute distress, alert and awake Nutritional Appearance: well nourished Orientation/consciousness: oriented to person, oriented to place and oriented to time HENMT Ears: TM's normal bilaterally General nose exam: Normal nasal mucous membranes and turbinates present Eyes Conjunctivae: conjunctivae normal Sclerae: sclerae normal Pupils: Equal, round and reactive pupils present Neck Neck: Yes no lymphadenopathy and Yes no JVD Thyroid: Thyroid normal Carotids: no bruits Resp Effort & Inspection: normal respiratory effort and not tachypneic Auscultation: no crackles, no rales, no rhonchi and no wheezes Cardio Rate: regular rate Rhythm: regular rhythm Heart sounds: no murmurs and normal S1 and S2 GI Palpation (GI): Soft to palpation, nontender, no hepatomegaly and no splenomegaly Auscultation: normal bowel sounds Skin General skin exam: no rashes or lesions noted and dry skin Neuro General: oriented to person, oriented to place and oriented to time Cranial nerves: Yes Equal, round and reactive pupils present Speech: No Abnormal speech present Gait exam (Neuro): Normal gait present Motor exam (neuro): no tremor noted Extrem Right upper extremity: full ROM Left upper extremity: full ROM Right lower extremity: full ROM; no edema Left lower extremity: full ROM; no edema Psych Mental Status: mental status grossly normal Speech and movement: Normal speech and movement present Affect: normal affect Attitude: cooperative Thought process: Normal thought process present Coding Level of Care Code Est Pt Level 4 (62487) Diagnoses Primary hypertension I10 Hypertension type: primary hypertension Microalbuminuria R80.9 Lumbar vertebral syndrome M54.16 JAKUB (generalized anxiety disorder) F41.1 Tobacco dependence F17.200 Additional Codes JAKUB-7 Assessment Billing - JAKUB-7 Assessment Tool: JAKUB-7 Assessment 51350 ([id number]) PHQ-9 - 59532 - PHQ-9 Billing: Yes ([id number]) Vital Signs *Quality* - CPT code: 43519 - 4-10 Minutes ([id number]) Assessment & Plan Assessment & Plan (1) HTN (hypertension): Code(s): I10 - Essential (primary) hypertension Category: Medical Qualifiers: Hypertension type: primary hypertension Qualified Code(s): I10 - Essential (primary) hypertension Plan: Patient's blood pressure elevated today in office. Has been noted pretty significant microalbuminuria. You have increased his lisinopril to 20 mg for better blood pressure control. Will recheck his microalbuminuria in 3 months and if still elevated will consider Nephrology evaluation. Goal blood pressures to be below 140/90. Again advised to quit smoking (2) Microalbuminuria: Code(s): R80.9 - Proteinuria, unspecified Category: Medical Plan: As above have noted pretty significant microalbuminuria. He does report a small amount of foam in the toilet while urinating. Will up titrate his lisinopril for better blood pressure control (3) Lumbar vertebral syndrome: Code(s): M54.16 - Radiculopathy, lumbar region Category: Medical Plan: Has been evaluated by neuro customer relationship specialist for his chronic lower lumbar spine pain. He did get a procedure/ nerve block which did significantly reduce his pain. He has a using a lot less tramadol and NSAID. (4) JAKUB (generalized anxiety disorder): Code(s): F41.1 - Generalized anxiety disorder Category: Medical Plan: Patient's JAKUB-7 score positive for anxiety which has been existing condition for him.. He does report having a lot of stress in his life due to personal matters in his family. He has not been consistent with the use of a sertraline and promises to be more consistent with daily use of sertraline to help regulate his anxiety. We did discuss mental health therapy though he declines at this time. (5) Tobacco dependence: Code(s): F17.200 - Nicotine dependence, unspecified, uncomplicated Category: Medical Plan: Patient does understand he needs to quit smoking. Does have nicotine patches available to him. He has tried Chantix in the past with some reduction in his smoking. Plan Goal: Blood pressure to be below 140/90, stopped smoking Barriers: Adherence to physical activity and healthy eating habits, chronic low back pain. Orders: Orders Microalbumin, Random (w Creat) Today R80.9 - Proteinuria, unspecified Comprehensive Met. Panel Today I10 - Essential (primary) hypertension Medications: New lisinopril 20 mg PO DAILY 90 tabs 1RF I10 - Essential (primary) hypertension Refilled tramadol 50 mg PO BID 7 days 14 tabs 1RF M54.16 - Radiculopathy, lumbar region Discontinued lisinopril Discontinued Reason: Doctor's Order 10 mg PO DAILY 90 tabs 1RF I10 - Essential (primary) hypertension
== END 2024-11-16 09:15 | disposition home or self-care (01) ==
LOC: HO.HMCH 08:34
PROVIDERS: PCP Physician Assistant; Visit Provider Physician Assistant
DX: I10 Essential (primary) hypertension (principal); R80.9 Proteinuria, unspecified; M54.16 Radiculopathy, lumbar region; F41.1 Generalized anxiety disorder; F17.200 Nicotine dependence, unspecified, uncomplicated

== ENCOUNTER → 2024-11-16 08:33 | Outpatient (BNVA) | payer OTHER, SELFPAY | PROVIDERS: PCP Physician Assistant; Visit Provider Physician Assistant | DX: I10 Essential (primary) hypertension (principal); R80.9 Proteinuria, unspecified; M54.16 Radiculopathy, lumbar region; F41.1 Generalized anxiety disorder; F17.210 Nicotine dependence, cigarettes, uncomplicated; Z79.899 Other long term (current) drug therapy; Z13.30 Encounter for screening examination for mental health and behavioral disorders, unspecified | CPT/HCPCS: 96127 ==

== ENCOUNTER 2025-02-16 08:39 | Outpatient (REF) | payer OTHER, SELFPAY ==
--- NOTE | ~2025-02-16 | XR_ITS ---
EXAMINATION: XR LUMBOSACRAL SPINE CLINICAL INFORMATION: M54.16 - Radiculopathy, lumbar region COMPARISON: January 05, 2023. TECHNIQUE: AP and lateral views FINDINGS: Multilevel marginal osteophyte formation and syndesmophyte formation and endplate sclerosis and decreased intervertebral disc height at the lower thoracic spine and upper lumbar spine. Small marginal osteophyte formation and endplate sclerosis throughout the vertebral bodies and lumbar spine. Facet joint hypertrophy at L5-S1 and L4-5 levels. No acute cortical disruption or gross malalignment. No lytic or blastic lesions. XR/XR lumbar spine 2-3V IMPRESSION: Multilevel moderate thoracolumbar spondylosis without acute fracture or gross listhesis. Electronically signed by: Adams Mccarthy MD 02/16/2025 09:42 AM EDT
[2025-02-16 10:17] LABS: Alanine Aminotransferase 29 U/L (0-40); Albumin Level 4.7 g/dL (3.5-5.0); Alkaline Phosphatase 78 U/L (39-117); Anion Gap 16 (12-20); Aspartate Amino Transferase 23 U/L (5-37); Blood Urea Nitrogen 12 mg/dL (9-16); Calcium 9.6 mg/dL (8.4-10.2); Carbon Dioxide 25 mmol/L (22-29); Chloride 106 mmol/L (96-108); Estimated Glomerular Filt Rate > 60; Potassium 4.6 mmol/L (3.3-5.1); Sodium 142 mmol/L (135-145); Total Protein 7.4 g/dL (6.5-8.0)
[2025-02-16 11:43] LABS: Microalbum/Creatinine Ratio Ur 62.1 ug/mg cr (<30)
== END 2025-02-16 08:40 | disposition home or self-care (01) ==
LOC: HO.LAB 08:39
PROVIDERS: PCP Physician Assistant; Visit Provider Physician Assistant
DX: I10 Essential (primary) hypertension (principal); M54.16 Radiculopathy, lumbar region; R80.9 Proteinuria, unspecified; Z12.5 Encounter for screening for malignant neoplasm of prostate
CPT/HCPCS: 36415; 72100; 80053; 82043; 82570; 84153

== ENCOUNTER → 2025-02-16 08:55 | Outpatient (BNV) | payer OTHER, SELFPAY | PROVIDERS: PCP Physician Assistant; Visit Provider Radiology Diagnostic Radiology | DX: M47.815 Spondylosis without myelopathy or radiculopathy, thoracolumbar region (principal) | CPT/HCPCS: 72100 ==

== ENCOUNTER 2025-03-19 10:49 | Outpatient (AMB) | payer OTHER, SELFPAY ==
[2025-03-19 10:51] VITALS: BP 124/76; PULSE 70; O2SAT 97; BMI 36.0
--- NOTE | 2025-03-19 10:51 | MHC.PC.OV ---
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 Accompanied by: Self / Same As Patient Allergies Penicillins (PENICILLINS) Allergy (Unknown, Verified 03/19/25 10:57) UNKOWN Medication List - Last Reconciled 03/19/25 by Jhoan Watts PA-C buspirone 5 mg PO BID 90 days cyclobenzaprine 10 mg PO BEDTIME 14 days heating pads As directed hydroxyzine HCl 25 mg PO BID PRN 7 days lisinopril 20 mg PO DAILY naproxen 500 mg PO Q12H PRN sertraline 25 mg PO DAILY sildenafil 100 mg PO DAILY 14 days tramadol 50 mg PO BID 7 days trazodone 50 mg PO BEDTIME 90 days Tobacco use date assessed: 03/19/25 Dental Screening Dental Screen Date: 03/19/25 Did you have a dental visit in the last 12 months?: No Did you have a dental problem in the last 6 months where you did not have access to dental care?: No Was dental information given to patient?: No HPI f/u HTN HPI Details Patient is a 50-year-old male here today a follow-up visit ? Patient has a past medical history significant for GERD, tobacco dependency, chronic lumbar spine pain, obesity. concerns--> patient reporting having increased memory issues and is concerned as he has a family history of Alzheimer's. He does report having right-sided flank pain and thoracic/scapular pain over the last few weeks. He denies any urinary frequency or urgency. .. Anxiety: He does report having increased anxiety as of late due to stress and personal matters. He is interested in increasing his dose of sertraline to help him with his anxiety and depression. Again due to his elevation in his anxiety and depression he is interested now speaking with a mental therapist again. Hypertension: Patient's blood acceptable in office. Most recent microalbuminuria showing significant improvement though still elevated . We have increased his lisinopril dose in blood pressures has been better. He otherwise denies any headaches, chest discomfort, shortness for breath or dizziness. .. .. Lumbar spine: Has followed up with back specialist and did get a nerve block which significantly reduced his lower back pain. Does still have other pains in his has been knees and shoulders. Does use tramadol for his pain on a as needed basis though much less. Smoker: He reports he has reduced his smoking down to 4 packs of cigarettes per week from 7 Packs He is proud about this. [facility] Medical History Erectile dysfunction H. pylori infection COVID-19 virus infection Low back pain GERD (gastroesophageal reflux disease) Depression Umbilical hernia Surgical History Hx of colonoscopy History of esophagogastroduodenoscopy (EGD) History of appendectomy Family History Father No problems noted. Mother Osteoarthritis Alzheimer dementia Maternal Aunt Cancer Social History Housing: House Are you a primary healthcare recruiter to a significant other at home: No Do you presently have visiting nurse or other home services: No Alcohol intake: current Alcohol intake frequency: holidays/special occasions only Alcohol type: beer Patient Tobacco Use Status: Current everyday Tobacco user Tobacco use type: Cigarette Cigarettes Per Day: 7 Years Smoked: 30 e-Cigarette/Vaping Use: Never Used service: No Current occupational status: employed Cognitive needs: No Hearing needs: No Vision needs: No Questionnaire Thrive Questionnaire Date Thrive assessed: 08/15/24 I am a: Patient What is your living situation today?: I have a steady place to live Within the past 12 months, did the food you bought not last and you didn't have the money to get more?: I choose not to answer this question Within the past 12 months, did you worry whether your food would run out before you got money to buy more?: I choose not to answer this question Do you have trouble paying for medicines?: I choose not to answer this question Do you have trouble getting transportation to medical appointments?: I choose not to answer this question Do you have trouble paying your heating and electricity bill?: I choose not to answer this question Do you have trouble taking care of your child, family member or friend?: I choose not to answer this question Do you have trouble with day-to-day activities such as bathing, preparing meals, shopping, managing finances, etc.?: I choose not to answer this question Are you currently unemployed and looking for a job?: I choose not to answer this question Are you interested in more education?: I choose not to answer this question Please select the resources that you would like help with: None Currently or been in a relationship where the following occur: I choose not to answer THRIVE Score: 0 AUDIT C Alcohol Use Questionnaire (AUDIT-C) 1. How often do you have a drink containing alcohol?: 2-3 times a week 2. How many drinks containing alcohol do you have on a typical day when you are drinking?: 10 or more 3. How often do you have six or more drinks on one occasion?: Weekly Total Score: 10 Score Reviewed/Action Taken: Yes JAKUB-7 AMB Questionnaire JAKUB-7 Date JAKUB - 7 assessed: 11/16/24 Source: Developed by Drs. Darrell Lewis, Ainsley Aquino, Irwin Lora and colleagues, with an educational dalila from [employer]. Review of Systems Const Denies headache(s) Eyes Denies loss of vision ENT Denies vertigo, Denies dizziness, Denies headache(s) and Denies sore throat Card Denies chest pain, Denies leg edema and Denies lightheadedness Resp Denies cough, Denies hemoptysis and Denies wheezing GI Denies abdominal pain, Denies melena, Denies constipation, Denies diarrhea and Denies vomiting Denies dysuria, Denies urinary frequency and Denies urinary urgency Musc Denies arthralgias, Denies joint swelling, Denies numbness and Denies tingling Neuro Denies Abnormal speech present, Denies behavioral changes, Denies vertigo, Denies dizziness, Denies headache(s), Denies loss of vision, Denies memory loss, Denies numbness and Denies tingling Psych Denies anxiety, Denies behavioral changes, Denies depression, Denies memory loss and Denies panic attacks Arnaldo/Lymph Denies easy bleeding and Denies easy bruising Aller/Immun Denies wheezing Physical exam (Primary Care) Vital Signs: Last Vital Signs Pulse 70 03/19/25 10:51 BP 124/76 03/19/25 10:51 Pulse Ox 97 03/19/25 10:51 Oxygen Delivery Method Room Air 03/19/25 10:51 BMI result Body Mass Index 36.0 Tobacco/Smoking Status: Tobacco use Status Tobacco use date assessed 03/19/25 03/19/25 10:57 Patient Tobacco Use Status Current everyday Tobacco 03/19/25 10:57 Tobacco use type Cigarette 03/19/25 10:57 e-Cigarette/Vaping Use Never Used 03/19/25 10:57 Thrive Assessment: Date of Thrive Assessment Date Thrive assessed 08/15/24 03/19/25 10:57 Currently or been in a relationship where the following occur: I choose not to answer Const General: healthy appearing, no acute distress, alert and awake Nutritional Appearance: well nourished Orientation/consciousness: oriented to person, oriented to place and oriented to time HENMT Ears: TM's normal bilaterally General nose exam: Normal nasal mucous membranes and turbinates present Eyes Conjunctivae: conjunctivae normal Sclerae: sclerae normal Pupils: Equal, round and reactive pupils present Neck Neck: Yes no lymphadenopathy and Yes no JVD Thyroid: Thyroid normal Carotids: no bruits Resp Effort & Inspection: normal respiratory effort and not tachypneic Auscultation: no crackles, no rales, no rhonchi and no wheezes Cardio Rate: regular rate Rhythm: regular rhythm Heart sounds: no murmurs and normal S1 and S2 GI Palpation (GI): Soft to palpation, nontender, no hepatomegaly and no splenomegaly Auscultation: normal bowel sounds Skin General skin exam: no rashes or lesions noted and dry skin Neuro General: oriented to person, oriented to place and oriented to time Cranial nerves: Yes Equal, round and reactive pupils present Speech: No Abnormal speech present Gait exam (Neuro): Normal gait present Motor exam (neuro): no tremor noted Extrem Right upper extremity: full ROM Left upper extremity: full ROM Right lower extremity: full ROM; no edema Left lower extremity: full ROM; no edema Psych Mental Status: mental status grossly normal Speech and movement: Normal speech and movement present Affect: normal affect Attitude: cooperative Thought process: Normal thought process present Coding Level of Care Code Est Pt Level 4 (31926) Diagnoses Primary hypertension I10 Hypertension type: primary hypertension Microalbuminuria R80.9 Lumbar vertebral syndrome M54.16 JAKUB (generalized anxiety disorder) F41.1 Tobacco dependence F17.200 Memory impairment R41.3 Thoracic radiculitis M54.14 Right flank pain R10.9 Assessment & Plan Assessment & Plan (1) HTN (hypertension): Code(s): I10 - Essential (primary) hypertension Category: Medical Qualifiers: Hypertension type: primary hypertension Qualified Code(s): I10 - Essential (primary) hypertension Plan: Patient's blood pressure elevated today in office. He has noted improvement in his microalbuminuria though still elevated We have increased his lisinopril which has helped his blood pressure significantly.. Goal blood pressures to be below 140/90. Again advised to quit smoking (2) Microalbuminuria: Code(s): R80.9 - Proteinuria, unspecified Category: Medical Plan: As above have noted pretty significant microalbuminuria. He does report a small amount of foam in the toilet while urinating. Will up titrate his lisinopril for better blood pressure control (3) Lumbar vertebral syndrome: Code(s): M54.16 - Radiculopathy, lumbar region Category: Medical Plan: Has been evaluated by neuro outbound sales specialist for his chronic lower lumbar spine pain. He did get a procedure/ nerve block which did significantly reduce his pain. He has a using a lot less tramadol and NSAID. (4) JAKUB (generalized anxiety disorder): Code(s): F41.1 - Generalized anxiety disorder Category: Medical Plan: Patient's JAKUB-7 score positive for anxiety which has been existing condition for him.. He does report having a lot of stress in his life due to personal matters in his family. He has not been consistent with the use of a sertraline and promises to be more consistent with daily use of sertraline to help regulate his anxiety. We did discuss mental health therapy though he declines at this time. (5) Tobacco dependence: Code(s): F17.200 - Nicotine dependence, unspecified, uncomplicated Category: Medical Plan: Patient does understand he needs to quit smoking. Does have nicotine patches available to him. He has tried Chantix in the past with some reduction in his smoking. (6) Memory impairment: Code(s): R41.3 - Other amnesia Category: Medical Plan: The patient will be referred to a neurologist for further evaluation of memory loss, considering the family history of Alzheimer's disease. An MRI of the brain is suggested to rule out any structural causes of memory impairment. (7) Thoracic radiculitis: Code(s): M54.14 - Radiculopathy, thoracic region Category: Medical Plan: For the right-sided thoracic pain, an x-ray of the thoracic spine is recommended to assess for any structural abnormalities such as disc space narrowing or arthritis. Physical therapy may be considered if the pain is musculoskeletal in nature (8) Right flank pain: Code(s): R10.9 - Unspecified abdominal pain Category: Medical Plan: Due to the right flank pain will send the patient for renal ultrasound evaluate for a kidney stone. Plan Goal: Blood pressure to be below 140/90, stopped smoking Barriers: Adherence to physical activity and healthy eating habits, chronic low back pain. Orders: Orders US renal RT Today R10.9 - Unspecified abdominal pain MR head/brain wo con Today R41.3 - Other amnesia PT Evaluation and Treatment Today M54.14 - Radiculopathy, thoracic region Referrals Counseling Referral F32.89 - Other specified depressive episodes Neurology Referral R41.3 - Other amnesia Medications: New sertraline 50 mg PO DAILY 90 tabs 1RF 90 days F32.89 - Other specified depressive episodes lidocaine 5% leave on most painful area for up to 12 hrs 1 patch topical DAILY 30 ea 3RF 30 days M54.16 - Radiculopathy, lumbar region ibuprofen 800 mg PO Q8H PRN 90 tabs 1RF pain 30 days M54.16 - Radiculopathy, lumbar region Refilled tramadol 50 mg PO BID 14 tabs 2RF 7 days M54.16 - Radiculopathy, lumbar region cyclobenzaprine 10 mg PO BEDTIME 14 tabs 3RF 14 days M54.16 - Radiculopathy, lumbar region sildenafil administer 30 minutes to 4 hours before activity 100 mg PO DAILY 14 tabs 2RF sexual activity 14 days N52.9 - Male erectile dysfunction, unspecified Discontinued sertraline Discontinued Reason: Doctor's Order 25 mg PO DAILY 90 tabs 1RF F32.A - Depression, unspecified On Hold naproxen Hold Comment: Doctor's Order 500 mg PO Q12H PRN 60 tabs 3RF pain M54.16 - Radiculopathy, lumbar region
== END 2025-03-19 11:22 | disposition home or self-care (01) ==
LOC: HO.HMCH 10:50
PROVIDERS: PCP Physician Assistant; Visit Provider Physician Assistant
DX: I10 Essential (primary) hypertension (principal); R80.9 Proteinuria, unspecified; M54.16 Radiculopathy, lumbar region; F41.1 Generalized anxiety disorder; F17.200 Nicotine dependence, unspecified, uncomplicated; R41.3 Other amnesia; M54.14 Radiculopathy, thoracic region; R10.9 Unspecified abdominal pain

== ENCOUNTER 2025-03-21 12:13 | Outpatient (REF) | payer OTHER, SELFPAY ==
[2025-03-21 14:12] LABS: Microalbum/Creatinine Ratio Ur 65.6 ug/mg cr (<30)
== END 2025-03-21 12:14 | disposition home or self-care (01) ==
LOC: HO.LAB 12:13
PROVIDERS: PCP Physician Assistant; Visit Provider Physician Assistant
DX: R80.9 Proteinuria, unspecified (principal)
CPT/HCPCS: 82043; 82570

== ENCOUNTER 2025-04-11 08:12 | Outpatient (REF) | payer OTHER, SELFPAY ==
--- NOTE | ~2025-04-11 | MR_ITS ---
CLINICAL HISTORY: R41.3 - Other amnesia MR Brain without gadolinium Comparison: None provided Findings: No restricted diffusion. No intra-axial mass or hemorrhage. No midline shift. No hydrocephalus. Vascular flow voids are intact. The orbits are normal. The sinuses and mastoid air cells are clear. No focal bone lesion. IMPRESSION: No acute findings. This document has been electronically signed by: Jagjit Carrington MD on 04/11/2025 22:43:00
== END 2025-04-11 08:13 | disposition home or self-care (01) ==
LOC: HO.MRI 08:12
PROVIDERS: PCP Physician Assistant; Visit Provider Physician Assistant
DX: R41.3 Other amnesia (principal)
CPT/HCPCS: 70551

== ENCOUNTER 2025-04-11 19:10 | Emergency (ER) | payer OTHER, SELFPAY ==
--- NOTE | ~2025-04-11 | XR_ITS ---
CLINICAL HISTORY: atraumatic back pain 4 views thoracic spine Comparison: None provided Findings: Normal alignment. No acute fractures or dislocation. Moderate multilevel spondylosis with anterior bridging osteophytes and disc space narrowing. IMPRESSION: No evidence of acute fracture or traumatic listhesis of the thoracic spine. Moderate multilevel spondylosis with anterior bridging osteophytosis may represent diffuse idiopathic skeletal hyperostosis or ankylosing spondylitis. This document has been electronically signed by: Jagjit Carrington MD on 04/11/2025 20:13:33
--- NOTE | 2025-04-11 19:27 | ED.GENADULT ---
HPI - General Adult General Chief complaint: Back Pain/Injury Stated complaint: back pain, no injury Time Seen by Provider: 04/11/25 22:16 Source: patient Mode of arrival: ambulatory Limitations: no limitations History of Present Illness ED Provider: HPI narrative: 50-year-old male with a history of lower and upper back pain presenting with mid back pain after laying down in MRI machines for 30 minutes for brain MRI, he states he has a history of lower back pain which is now migrated to the upper back, he has no nausea no vomiting no fevers or chills, no numbness tingling, no hematuria or dysuria. No abdominal pain. No history IV drug use Related Data Previous Rx's ?Medication ?Instructions ?Recorded heating pads #1 ea 09/17/21 buspirone 5 mg tablet 5 mg PO BID anxiety 90 days #180 04/28/23 tabs hydroxyzine HCl 25 mg tablet 25 mg PO BID PRN itching 7 days 08/15/24 #14 tabs trazodone 50 mg tablet 50 mg PO BEDTIME 90 days #90 tabs 09/20/24 lisinopril 20 mg tablet 20 mg PO DAILY #90 tabs 11/16/24 naproxen 500 mg tablet 500 mg PO Q12H PRN pain #60 tabs 01/31/25 Held on 03/19/25. Instructions: Doctor's Order cyclobenzaprine 10 mg tablet 10 mg PO BEDTIME 14 days #14 tabs 03/19/25 ibuprofen 800 mg tablet 800 mg PO Q8H PRN pain 30 days #90 03/19/25 tabs lidocaine 5 % topical patch 1 patch topical DAILY 30 days #30 03/19/25 ea sertraline 50 mg tablet 50 mg PO DAILY 90 days #90 tabs 03/19/25 sildenafil 100 mg tablet 100 mg PO DAILY sexual activity 14 03/19/25 days #14 tabs tramadol 50 mg tablet 50 mg PO BID 7 days #14 tabs 03/19/25 lidocaine 5 % topical patch 1 patch topical DAILY #15 ea 04/11/25 methylprednisolone 4 mg tablets in 4 mg PO DAILY #21 ea 04/11/25 a dose pack (Medrol (Sachin)) tramadol 50 mg tablet 50 mg PO BID PRN pain 3 days #6 04/11/25 tabs Allergies Allergy/AdvReac Type Severity Reaction Status Date / Time Penicillins (PENICILLINS) Allergy Unknown UNKOWN Verified 04/11/25 19:31 Review of Systems Constitutional: Constitutional: Reports as per [facility] Past Medical History Medical History Erectile dysfunction H. pylori infection COVID-19 virus infection Low back pain GERD (gastroesophageal reflux disease) Depression Umbilical hernia Surgical History Hx of colonoscopy History of esophagogastroduodenoscopy (EGD) History of appendectomy Family History Family History Father No problems noted. Mother Osteoarthritis Alzheimer dementia Maternal Aunt Cancer Social History Social History Housing: House Are you a primary home health care case manager to a significant other at home: No Do you presently have visiting nurse or other home services: No Alcohol intake: current Alcohol intake frequency: holidays/special occasions only Alcohol type: beer Patient Tobacco Use Status: Current everyday Tobacco user Tobacco use type: Cigarette Cigarettes Per Day: 7 Years Smoked: 30 e-Cigarette/Vaping Use: Never Used Advance Directives: No Advance Directives Information Provided: Yes Do you have a plan to hurt others: No Plan service: No Current occupational status: employed Cognitive needs: No Hearing needs: No Vision needs: No Physical Exam ED Exam Exam: General: ?Appears of stated age ? Neck: Supple, no LAD ? Abd: ?Bowel sounds are present, no tenderness no rebound no rigidity ? ?MSK: FROM, strength 5/5 all extremities, tenderness along mid back, bilateral paraspinal, no midline tenderness or step-offs, no sensory deficits good strength bilateral lower extremities ? Skin: Warm, dry, intact, ? ?Neuro: ?Alert and oriented x3, moving upper and lower extremities symmetrically, no obvious facial asymmetry noted, cranial nerves 2-12 intact Vital Signs: Vital Signs - 24 hr 04/11/25 19:28 Temperature 96.9 F Pulse Rate 82 Respiratory Rate 18 Blood Pressure 161/89 H Pulse Oximetry 98 Oxygen Delivery Method Room Air BMI result Body Mass Index 36.3 Course Course Course Narrative: This is a Rapid Medical Examination (RME) performed by Murtaza Manley PA-C in triage. Full HPI, ROS, assessment and treatment plan per primary provider in the Main ED. Hx: 50 yo M here for acute on chronic mid-back pain, exacerbated by lying down for a long period of time today while getting an MRI of his brain earlier today. no hx spinal surgery. no radiation. no numbness/tingling, urinary sx. Plan: xr Medical Decision Making Medical Decision Making [facility] Narrative: 10:53 PM 04/11/2025 (Dr. 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 he is on tramadol PRN can do few days of that, as well as steroids and he can follow up with the PCP Differential Diagnosis Differential Diagnoses: The differential diagnosis associated with the presentation includes (Fracture, diskitis osteomyelitis, spasm, renal colic, thoracic myelopathy) Admission/Observation Consideration of admission/observation: Escalation of care including admission/observation considered Independent Interpretation I performed an independent interpretation of an: Plain X-Ray ( kissing lesions with significant arthrosis) Radiology Impression Discussion of test interpretation with radiology: I have reviewed the radiologist's reading. (No evidence of acute fracture or traumatic listhesis of the thoracic spine. Moderate multilevel spondylosis with anterior bridging osteophytosis may represent diffuse idiopathic skeletal hyperostosis or ankylosing spondylitis.) External Record Review External record reviewed: Office record Prescription Management I considered prescription management with: Pain Medication Discharge Plan Discharge Clinical Impression: Midline thoracic back pain Patient Disposition: Home, Self-Care Instructions: Thoracic Pain (ED), Back Pain (ED) Additional Instructions: Continue with steroids pack starting tomorrow, I am providing you with just a few pills of tramadol if taken in the past based on your medication review, and lidocaine patches to apply to the mid area of the back, follow up with the PCP worsening issues or concerns come back to the ER Methylprednisolone is a steroid if in the next 2 days you are still having pain with the regimen that I am prescribing you can initiate treatment with a Medrol Dosepak and use as prescribed, Prescriptions: New tramadol 50 mg tablet 50 mg PO BID PRN (Reason: pain) 3 Days Qty: 6 0RF methylprednisolone [Medrol (Sachin)] 4 mg tablets,dose pack 4 mg PO DAILY Qty: 21 0RF Rx Instructions: Day 1: 24 mg on day 1 administered as 8 mg before breakfast, 4 mg after lunch, 4 mg after supper, and 8 mg at bedtime or 24 mg as a single dose or divided into 2 or 3 doses upon initiation. Day 2: 20 mg on day 2 administered as 4 mg before breakfast, 4 mg after lunch, 4 mg after supper, and 8 mg at bedtime. Day 3: 16 mg on day 3 administered as 4 mg before breakfast, 4 mg after lunch, 4 mg after supper, and 4 mg at bedtime. Day 4: 12 mg on day 4 administered as 4 mg before breakfast, 4 mg after lunch, and 4 mg at bedtime. Day 5: 8 mg on day 5 administered as 4 mg before breakfast and 4 mg at bedtime. Day 6: 4 mg on day 6 administered as 4 mg before breakfast. lidocaine 5 % adhesive patch,medicated 1 patch topical DAILY Qty: 15 0RF Rx Instructions: leave on most painful area for up to 12 hrs No Action trazodone 50 mg tablet 50 mg PO BEDTIME 90 Days Qty: 90 2RF naproxen 500 mg tablet 500 mg PO Q12H PRN (Reason: pain) Qty: 60 3RF (DME) heating pads Pad See Rx Instructions .Route Qty: 1 0RF Rx Instructions: As directed buspirone 5 mg tablet 5 mg PO BID 90 Days Qty: 180 2RF hydroxyzine HCl 25 mg tablet 25 mg PO BID PRN (Reason: itching) 7 Days Qty: 14 0RF lisinopril 20 mg tablet 20 mg PO DAILY Qty: 90 1RF sertraline 50 mg tablet 50 mg PO DAILY 90 Days Qty: 90 1RF lidocaine 5 % adhesive patch,medicated 1 patch topical DAILY 30 Days Qty: 30 3RF Rx Instructions: leave on most painful area for up to 12 hrs ibuprofen 800 mg tablet 800 mg PO Q8H PRN (Reason: pain) 30 Days Qty: 90 1RF tramadol 50 mg tablet 50 mg PO BID 7 Days Qty: 14 2RF cyclobenzaprine 10 mg tablet 10 mg PO BEDTIME 14 Days Qty: 14 3RF sildenafil 100 mg tablet 100 mg PO DAILY 14 Days Qty: 14 2RF Rx Instructions: administer 30 minutes to 4 hours before activity Print Language: Belgian
[2025-04-11 19:28] VITALS: BP 161/89; PULSE 82; RESP 18; TEMP 36.1; O2SAT 98; BMI 36.3
[2025-04-11 23:34] VITALS: BP 125/80; PULSE 83; RESP 19; TEMP 36.6; O2SAT 96
== END 2025-04-11 23:35 | disposition home or self-care (01) ==
PROVIDERS: Emergency Provider Emergency Medicine; PCP Physician Assistant
DX: M54.6 Pain in thoracic spine (principal); M54.50 Low back pain, unspecified; Z79.899 Other long term (current) drug therapy
CPT/HCPCS: 72072; 96372; 99283; 99284; J1885; J8540

== ENCOUNTER → 2025-04-11 19:29 | Outpatient (BNV) | payer OTHER, SELFPAY | PROVIDERS: PCP Physician Assistant; Visit Provider Student in an Organized Health Care Education/Training Program | DX: M47.814 Spondylosis without myelopathy or radiculopathy, thoracic region (principal) | CPT/HCPCS: 70551; 72072 ==

== ENCOUNTER 2025-04-13 10:01 | Outpatient (AMB) | payer OTHER, SELFPAY ==
[2025-04-13 10:34] VITALS: BP 128/90; PULSE 98; TEMP 36.8; O2SAT 96; BMI 36.5
--- NOTE | 2025-04-13 10:34 | AM.OFFWIN_ITS ---
Intake Vital Signs 04/13/25 10:34 Height 5 ft 11 in Weight 262 lb BMI 36.5 BP 128/90 H Blood Pressure Location Lt brachial Pulse 98 Pulse Source Pulse Oximeter Temp 98.2 F Temp Source Oral Pulse Oximetry (%) 96 Oxygen Delivery Method Room Air Intake Visit Reasons: EP Middle back pain Intake Note: pt presents with upper back pain radiating down right arm x2 days, was seen at [facility] Patient Tobacco Use Status: Current everyday Tobacco user Allergies Penicillins (PENICILLINS) Allergy (Unknown, Verified 04/13/25 10:40) UNKOWN Do you need a note to return to daycare/school/sports/work: Yes HPI HPI Comments History of Present Illness Details History - The patient is a 50-year-old male with past med hx of chronic low back pain presenting with severe right flank pain. - The pain originates from the right daniel ulder blade and radiates through the arm. - The pain is exacerbated by deep breath ing. - The patient has a history of proteinur ia and elevated creatinine levels, leading to a referral to a seam taper machine, he has an appt in 2 weeks. - Bilateral renal cortical cysts were id entified on a renal ultrasound conducted in August. - The patient has chronic low back pain, distinctly different from the current shoulder and arm pain. - The patient went to the [facility] ED 2 days ago where he had a spine x-ray, he was told he had inflammation. He did get IV Toradol while he.was there and he said that it did not help his pain at all. He has had Toradol in the past for musculoskeletal pain and he says it usually works very well. He was discharged home with a lidocaine patch and a steroid taper. He has been using both without any improvement in his pain. - His says he is in so much pain th at he cries. - He denies any urinary changes, fevers , blood in his urine or color changes of his urine + Review of Systems - Musculoskeletal: Reports severe right shoulder and arm pain exacerbated by deep breathing. - Genitourinary: Denies hematuria and fe brad. All systems reviewed and are unremarkable except as noted in HPI Physical Exam General: cooperative, healthy appearing and extremely uncomfortable, patient oriented x3 Head: Yes normal to inspection and Yes normocephalic General nose exam: Normal external nose present Face and sinus: Yes normal facial exam Effort & Inspection: normal respiratory effort and able to speak in complete sentences Back/spine: cervical, thoracic and lumbar spine normal to inspection cervical ROM normal, thoracic ROM normal, lumbar ROM normal no Cervical, thoracic or lumbar spine tenderness No TTP on bilateral thoracic back CVA + right side PFSH Medical History Erectile dysfunction H. pylori infection COVID-19 virus infection Low back pain GERD (gastroesophageal reflux disease) Depression Umbilical hernia Surgical History Hx of colonoscopy History of esophagogastroduodenoscopy (EGD) History of appendectomy Family History Father No problems noted. Mother Osteoarthritis Alzheimer dementia Maternal Aunt Cancer Social History Housing: House Are you a primary medicare insurance specialist to a significant other at home: No Do you presently have visiting nurse or other home services: No Alcohol intake: current Alcohol intake frequency: holidays/special occasions only Alcohol type: beer Patient Tobacco Use Status: Current everyday Tobacco user Tobacco use type: Cigarette Cigarettes Per Day: 7 Years Smoked: 30 e-Cigarette/Vaping Use: Never Used service: No Current occupational status: employed Cognitive needs: No Hearing needs: No Vision needs: No Physical Exam Vital Signs: Last Vital Signs Temp 98.2 F 04/13/25 10:34 Pulse 98 04/13/25 10:34 BP 128/90 H 04/13/25 10:34 Pulse Ox 96 04/13/25 10:34 Oxygen Delivery Method Room Air 04/13/25 10:34 BMI result Body Mass Index 36.5 Results Reviewed Results Reviewed: [address] [address] Ultrasound Report Signed Patient: Lev Weir MR#: [id number] : 1975 Acct:[id number] Age/Sex: 49 / M ADM Date: 09/07/24 Loc: HO. Attending Dr: Jhoan Watts PA-C Ordering Physician: Jhoan Watts PA-C Date of Service: 09/07/24 Procedure(s): US renal BI Accession Number(s): [id number] cc: Jhoan Watts PA-C~ CLINICAL HISTORY: R80.9 - Proteinuria, unspecified US renal with Color Doppler Comparison: US - RENALS ONLY [id number] - 02/07/20 16:38 EDT Findings: Right kidney normal size and echotexture, 11.5 cm length. No nephrolithiasis or hydronephrosis Normal color flow. Renal cortical cyst midpole measuring 2.6 x 2.8 x 2.7 cm previously measuring 1.6 x 2.3 x 1.6 cm. Minimal internal echoes Left kidney normal size and echotexture, 11.1 cm length. No nephrolithiasis or hydronephrosis. Normal color flow. Renal cortical cysts mid to lower pole measuring 8 x 6 x 7 mm with minimal internal echoes previously measuring 5 x 4 x 5 mm. Impression: 1. Kidneys normal size and position with normal cortical width and echotexture. Bilateral renal cortical cysts with minimal complexity can be correlated with a dedicated CT or MRI abdomen with and without contrast renal protocol study. This document has been electronically signed by: Nito Valdivia MD on 09/08/2024 10:18:18 Dictated By: Nito Valdivia MD Signed By: <Electronically signed by Nito Valdivia MD in OV> 09/08/24 1019 DD/ 1018 TD/TT: 09/08/24 1018 School Leader: Assessment & Plan Assessment & Plan (1) Acute right-sided thoracic back pain: Code(s): M54.6 - Pain in thoracic spine Plan: bilateral renal US on 09/08/24 showed bilateral renal cysts, specifically on the right side it showed: Right kidney normal size and echotexture, 11.5 cm length. No nephrolithiasis or hydronephrosis Normal color flow. Renal cortical cyst midpole measuring 2.6 x 2.8 x 2.7 cm previously measuring 1.6 x 2.3 x 1.6 cm. Minimal internal echoes Recommendation was: Impression: 1. Kidneys normal size and position with normal cortical width and echotexture. Bilateral renal cortical cysts with minimal complexity can be correlated with a dedicated CT or MRI abdomen with and without contrast renal protocol study. Plan - UA 3+ blood, + protein. negative for infection. - As the Toradol did not improve his pain at all and the steroids have not worked and neither has a lidocaine patch, it is likely not musculoskeletal. With his history of the ultrasound results above, the positive CVA tenderness and the exquisite amount of pain he is in, the patient was told to go to the emergency room to have his kidneys looked at via CT scan to rule out hemorrhage, rupture, infection or significant elargement of the cysts and to rule out kidney stones. - Called [facility] with geovani, spoke with Casey 11:15AM. Patient was informed and verbally consented to the use of an ambient scribe for clinic note documentation during this visit. Orders: Orders AMB Urinalysis Automated Today Z13.9 - Encounter for screening, unspecified Coding Level of Care Code Est Pt Level 5 (16222) Diagnoses Acute right-sided thoracic back pain M54.6
== END 2025-04-13 11:10 | disposition home or self-care (01) ==
PROVIDERS: PCP Physician Assistant; Visit Provider Physician Assistant
DX: M54.6 Pain in thoracic spine (principal); Z13.9 Encounter for screening, unspecified

== ENCOUNTER → 2025-04-13 10:01 | Outpatient (BNVA) | payer OTHER, SELFPAY | PROVIDERS: PCP Physician Assistant; Visit Provider Physician Assistant | DX: M54.6 Pain in thoracic spine (principal); M25.511 Pain in right shoulder; N28.1 Cyst of kidney, acquired | CPT/HCPCS: 81003 ==

== ENCOUNTER 2025-04-13 11:27 | Emergency (ER) | payer OTHER, SELFPAY ==
--- NOTE | ~2025-04-13 | CT_ITS ---
EXAMINATION: CT ABDOMEN PELVIS WITH IV CONTRAST HISTORY: R flank pain and lower spine pain COMPARISON: There are no prior studies for available comparison. TECHNIQUE: CT scan of the abdomen and pelvis was performed following administration of 85 mL Omnipaque 350 using standard departmental protocol. Coronal and sagittal reformatted images were generated and reviewed. Oral contrast material was not administered at the request of the referring physician. This CT exam was performed with one or more of the following dose reduction techniques: automated exposure control, adjustment of the mA and/or kV according to patient size, use of iterative reconstruction technique. DLP: 900 mGy-cm FINDINGS: LOWER CHEST: The visualized lung bases are clear. There is no pleural effusion. CARDIOVASCULATURE: The heart is normal in size. There is no pericardial effusion. LIVER: The liver is normal in size and contour. No liver mass is identified. The hepatic and portal veins are patent. GALLBLADDER / BILE DUCTS: The gallbladder is contracted, without evidence of calcified stones. There is no intra or extrahepatic biliary ductal dilatation. SPLEEN: The spleen is normal in size. No focal splenic lesion is identified. PANCREAS: The pancreas is unremarkable in appearance. ADRENAL GLANDS: Within normal limits. KIDNEYS/RETROPERITONEUM: No renal calculi are identified. There is no hydronephrosis. There is a 3.0 cm cyst at the lower pole of the right kidney. LYMPH NODES: No abdominal or pelvic lymphadenopathy. VASCULATURE: The abdominal aorta is normal in caliber. MESENTERY/PERITONEUM: No free fluid. No masses. There is no free intraperitoneal gas. STOMACH: The stomach is collapsed, limiting evaluation. SMALL BOWEL: The small bowel is normal in caliber. COLON: There is diverticulosis of the descending and sigmoid colon, without evidence of diverticulitis. APPENDIX: The appendix is not seen, however no inflammatory changes are seen adjacent to the cecum. URINARY BLADDER/PELVIC ORGANS: The urinary bladder is unremarkable. The prostate is normal in size. BONES / SOFT TISSUES: There is a small fat-containing umbilical hernia. No suspicious bony or soft tissue abnormalities. CT/CT abdomen pelvis w IV con IMPRESSION: Diverticulosis of the descending and sigmoid colon, without evidence of diverticulitis. Electronically signed by: Darrell Hardy MD 04/13/2025 02:19 PM EDT RP
[2025-04-13 11:34] VITALS: BP 142/85; PULSE 87; RESP 18; TEMP 36.7; O2SAT 97; BMI 35.6
--- NOTE | 2025-04-13 11:40 | ED.GENADULT ---
HPI - General Adult General Chief complaint: Back Pain/Injury Stated complaint: Lower Back Pain Time Seen by Provider: 04/13/25 11:37 Source: patient Mode of arrival: ambulatory Limitations: no limitations History of Present Illness ED Provider: DEANDRE Lu HPI narrative: 50-year-old male presents with severe/debilitating right-sided flank pain ongoing since Wednesday. Patient reports this pain started after an MRI he reports lying in that position for greater than 35 minutes was quite uncomfortable. Since then has been having severe pain. He reports he was seen here on 04/11/2025 and he had an x-ray done which showed bam boost spine. Patient was discharged on prednisone. He reports today he was still in pain and he went to the walk-in and they told him he had to come in here to be evaluated as they did not think this is musculoskeletal pain. Patient is quite uncomfortable on exam. He denies urinary/bowel incontinence/retention, saddle anesthesias, fevers, chills, IVDA. Related Data Previous Rx's ?Medication ?Instructions ?Recorded heating pads #1 ea 09/17/21 buspirone 5 mg tablet 5 mg PO BID anxiety 90 days #180 04/28/23 tabs hydroxyzine HCl 25 mg tablet 25 mg PO BID PRN itching 7 days 08/15/24 #14 tabs trazodone 50 mg tablet 50 mg PO BEDTIME 90 days #90 tabs 09/20/24 lisinopril 20 mg tablet 20 mg PO DAILY #90 tabs 11/16/24 naproxen 500 mg tablet 500 mg PO Q12H PRN pain #60 tabs 01/31/25 Held on 03/19/25. Instructions: Doctor's Order cyclobenzaprine 10 mg tablet 10 mg PO BEDTIME 14 days #14 tabs 03/19/25 ibuprofen 800 mg tablet 800 mg PO Q8H PRN pain 30 days #90 03/19/25 tabs lidocaine 5 % topical patch 1 patch topical DAILY 30 days #30 03/19/25 ea sertraline 50 mg tablet 50 mg PO DAILY 90 days #90 tabs 03/19/25 sildenafil 100 mg tablet 100 mg PO DAILY sexual activity 14 03/19/25 days #14 tabs tramadol 50 mg tablet 50 mg PO BID 7 days #14 tabs 03/19/25 lidocaine 5 % topical patch 1 patch topical DAILY #15 ea 04/11/25 methylprednisolone 4 mg tablets in 4 mg PO DAILY #21 ea 04/11/25 a dose pack (Medrol (Sachin)) tramadol 50 mg tablet 50 mg PO BID PRN pain 3 days #6 04/11/25 tabs cyclobenzaprine 10 mg tablet 10 mg PO BEDTIME PRN muscle spasm 04/13/25 #7 tabs morphine 15 mg immediate release 15 mg PO Q6H PRN pain 7 days #20 04/13/25 tablet tabs naloxone 4 mg/actuation nasal 4 mg intranasal Q2M PRN opioid 04/13/25 spray (Narcan) overdose #2 ea Allergies Allergy/AdvReac Type Severity Reaction Status Date / Time Penicillins (PENICILLINS) Allergy Unknown UNKOWN Verified 04/13/25 11:37 Review of Systems Review of Systems: Yes all other systems are reviewed and are negative [facility] Past Medical History Attestation statement: The following information was validated with the patient. Source: old records reviewed and nursing notes reviewed Medical History Erectile dysfunction H. pylori infection COVID-19 virus infection Low back pain GERD (gastroesophageal reflux disease) Depression Umbilical hernia Surgical History Hx of colonoscopy History of esophagogastroduodenoscopy (EGD) History of appendectomy Family History Family History Father No problems noted. Mother Osteoarthritis Alzheimer dementia Maternal Aunt Cancer Social History Social History Housing: House Are you a primary hospice care consultant to a significant other at home: No Do you presently have visiting nurse or other home services: No Alcohol intake: current Alcohol intake frequency: holidays/special occasions only Alcohol type: beer Patient Tobacco Use Status: Current everyday Tobacco user Tobacco use type: Cigarette Cigarettes Per Day: 7 Years Smoked: 30 e-Cigarette/Vaping Use: Never Used service: No Current occupational status: employed Cognitive needs: No Hearing needs: No Vision needs: No Physical Exam ED Exam Exam: Appearance: Alert.? Oriented X3.? No acute distress.? Head: Normocephalic, atraumatic, no step-offs or deformities Eyes: Pupils equal, round and reactive to light.? CVS: Normal heart rate and rhythm.? Pulses normal.? Respiratory: No respiratory distress.? Breath sounds normal.? Abdomen: Soft and nontender.? Skin: Skin warm and dry.? Normal skin color.? Normal skin turgor.? Extremities: No lower extremity edema.? No calf ttp. 5/5 strength to bilateral upper and lower extremities Back: + CVAT on the right, paraspinous lumbosacral ttp on exam on the right negative on the left Neuro: Oriented X 3.? No motor deficit.? No sensory deficit. CN 2-12 intact Vital Signs: Vital Signs - 24 hr 04/13/25 11:34 04/13/25 12:53 04/13/25 15:10 Temperature 98.0 F 97.7 F Pulse Rate 87 75 Respiratory Rate 18 16 12 Blood Pressure 142/85 H 120/73 Pulse Oximetry 97 97 Oxygen Delivery Method Room Air Room Air 04/13/25 15:59 Temperature 98.1 F Pulse Rate 75 Respiratory Rate 20 Blood Pressure 133/88 Pulse Oximetry 98 Oxygen Delivery Method Room Air BMI result Body Mass Index 35.6 vss Course Course Course Narrative: RME: For general male history of brought lumbar radiculopathy and right renal cyst presents to ED for right flank pain that is unbearable. Patient referred from urgent care who states patient has had some blood in urine and recommend CAT scan. Labs ordered Reevaluation(s) Reevaluation #1: Clinical note from 04/11 shows that patient was discharged on a Medrol pack, as well as tramadol. His x-rays showed kissing lesions with significant arthrosis. Time: 13:09 Reevaluation #2: Patient's leukocytosis this is likely in the setting of current steroid use. Potassium 5.2 low, ordered. Time: 13:37 Reevaluation #3: Patient refusing a nerve block that was offered by Dr. Childers. He would like to try pain medication Morphine for 7 days and cyclobenzaprine. Educated on risks for addiction. Patient wants info on a specialist in the area. Time: 17:02 Medications Administered Discontinued Medications Generic Name Dose Route Start Last Admin Trade Name Freq PRN Reason Stop Dose Admin Iohexol 100 ml 04/13/25 13:43 04/13/25 13:43 Iohexol 350 Mg/Ml 100 Ml Infus..Btl IV 04/13/25 13:44 85 ml ONCE ONE Administration Morphine Sulfate 4 mg 04/13/25 14:51 04/13/25 15:10 Morphine Sulfate 4 Mg/Ml Cartridge IVPUSH 04/13/25 14:52 4 mg ONCE ONE Administration Protocol Morphine Sulfate 4 mg 04/13/25 16:55 04/13/25 17:50 Morphine Sulfate 4 Mg/Ml Cartridge IVPUSH 04/13/25 16:56 4 mg ONCE ONE Administration Protocol Sodium Zirconium Cyclosilicate 10 gm 04/13/25 13:32 04/13/25 13:52 Sodium Zirconium Cyclosilicate 10 Gm Powd.Pack PO 04/13/25 13:33 10 gm ONCE ONE Administration Medical Decision Making Medical Decision Making [facility] Narrative: 1242 50-year-old male presents with severe right-sided flank pain/low back pain ongoing since Wednesday after MRI Physical exam right-sided CVA tenderness and right-sided lumbar paraspinous muscle tenderness to palpation on exam. History and physical exam concerning for possible lumbosacral discomfort/muscle spasm, versus kidney stone. Unlikely pyelo, cauda equina, cord compression. Plan imaging, urine, labs Differential Diagnosis Differential Diagnoses: The differential diagnosis associated with the presentation includes (History and physical exam concerning for possible lumbosacral discomfort/muscle spasm, versus kidney stone. Unlikely pyelo, cauda equina, cord compression.) Admission/Observation Consideration of admission/observation: Escalation of care including admission/observation considered Lab Data [facility] Lab Attestation statement: I reviewed the patient's lab results. 04/13/25 11:51 04/13/25 11:51 Labs: Lab Results 04/13/25 04/13/25 Range/Units 11:51 11:56 WBC 23.4 H (4.8-10.8) X10*3/uL RBC 5.13 (4.60-5.80) X10*6/uL Hgb 16.1 (14.0-18.0) g/dl Hct 48.0 (42.0-52.0) % MCV 93.6 (80.0-98.0) fL MCH 31.4 (27.0-33.0) pg MCHC 33.5 (31.0-36.0) g/dl RDW 12.9 (11.0-16.0) % Plt Count 261 (160-400) X10*3/uL MPV 8.7 L (9.4-12.4) fL Immature Gran % (Auto) Cancelled Neut % (Auto) Cancelled Lymph % (Auto) Cancelled [place] % (Auto) Cancelled Eos % (Auto) Cancelled Baso % (Auto) Cancelled Lymph # (Auto) Cancelled [place] # (Auto) Cancelled Eos # (Auto) Cancelled Baso # (Auto) Cancelled Abs Immat Gran (auto) Cancelled Absolute Neuts (auto) Cancelled Absolute Nucleated RBC 0.000 (0.0-0.012) X10*3/uL Nucleated RBC % (auto) 0.0 (0.0-0.2) /100WBC Neutrophils % (Manual) 63 (45-73) % Band Neutrophils % 0 L (3-5) % Lymphocytes % (Manual) 29 (20-40) % Monocytes % (Manual) 8 (2-11) % Abs Neuts (Manual) 14.7 H (2.0-8.3) X10*3/uL Lymphocytes # (Manual) 6.8 H (1.2-4.9) X10*3/uL Monocytes # (Manual) 1.9 H (0.1-1.2) X10*3/uL Platelet Estimate NORMAL (NORMAL) Large Platelets PRESENT Plt Morphology Comment NORMAL RBC Morphology NORMAL Smear Tech's Comments MANUAL DIFF ESR 9 (0-15) MM/HR Sodium 139 (135-145) mmol/L Potassium 5.2 H (3.3-5.1) mmol/L Chloride 107 (96-108) mmol/L Carbon Dioxide 26 (22-29) mmol/L Anion Gap 11 L (12-20) BUN 16 (9-16) mg/dL Creatinine 1.07 (0.5-1.4) mg/dL Estim Creat Clear Calc 106.9 Estimated GFR > 60 Random Glucose 100 (60-115) mg/dL Calcium 9.6 (8.4-10.2) mg/dL Total Bilirubin 0.3 (0.0-1.0) mg/dL AST 16 (5-37) U/L ALT 22 (0-40) U/L Alkaline Phosphatase 84 (39-117) U/L C-Reactive Protein 2.41 H (< or = 0.50) mg/dL Total Protein 7.6 (6.5-8.0) g/dL Albumin 4.7 (3.5-5.0) g/dL Lipase 14 (8-78) U/L Urine Color Yellow Urine Appearance Clear Urine pH 6.0 (5.0-9.0) Ur Specific [place] 1.015 (1.005-1.025) Urine Protein Trace (Neg-Trace) mg/dL Urine Glucose (UA) Negative (Negative) mg/dL Urine Ketones Negative (Negative) mg/dL Urine Blood Moderate (2+) H (Negative) Urine Nitrite Negative (Negative) Ur Leukocyte Esterase Negative (Negative) Urine RBC 6-10 H (0-2) /HPF Urine WBC 0-5 (0-5) /HPF Ur Squamous Epith Cells 0-2 (0-2) /HPF Urine Bacteria None Seen (None Seen) Hyaline Casts 0-2 (0-2) /LPF Critical Care Time Critical Care Time Critical Care Time: Yes Total Critical Care Time: 35 Attestation: I attest to this time spent taking care of the patient, obtaining history, physical, reviewing labs, imaging, speaking to my attending and or speaking to specialist. Or preforming a procedure Discharge Plan Discharge Clinical Impression: Acute exacerbation of chronic low back pain, Acute right flank pain Patient Disposition: Home, Self-Care Instructions: Acute Low Back Pain (ED) Additional Instructions: Take your medications as prescribed. If you were prescribed antibiotics today, it is important that you take your medication to their entirety, do not skip any doses, do not finish them early. Follow-up with your primary care provider this week. Return to the emergency department with new or worsening symptoms. Such as fevers, chills, chest pain, shortness of breath, nausea, vomiting, dizziness, headache, vision changes, lethargy In case of emergency call 911 A narcotic has been sent to your pharmacy please take this as prescribed. Do not take more than the prescribed dose. Narcotic medications can cause addiction. Please do not mix them with alcohol. Do not take them while driving or operating machinery. Do not take them with any other narcotics. Do not share them with friends or family. They can cause constipation. Take them only for severe pain. Morphine can cause constipation I will send stool softener to your pharmacy Prescriptions: New morphine 15 mg tablet 15 mg PO Q6H PRN (Reason: pain) 7 Days Qty: 20 0RF Rx Instructions: Partial Fill upon patient request. naloxone [Narcan] 4 mg/actuation spray,non-aerosol 4 mg intranasal Q2M PRN (Reason: opioid overdose) Qty: 2 0RF Rx Instructions: spray 1 dose into ONE nostril; alternate nostrils w each dose until help arrives cyclobenzaprine 10 mg tablet 10 mg PO BEDTIME PRN (Reason: muscle spasm) Qty: 7 0RF No Action trazodone 50 mg tablet 50 mg PO BEDTIME 90 Days Qty: 90 2RF naproxen 500 mg tablet 500 mg PO Q12H PRN (Reason: pain) Qty: 60 3RF tramadol 50 mg tablet 50 mg PO BID PRN (Reason: pain) 3 Days Qty: 6 0RF methylprednisolone [Medrol (Sachin)] 4 mg tablets,dose pack 4 mg PO DAILY Qty: 21 0RF Rx Instructions: Day 1: 24 mg on day 1 administered as 8 mg before breakfast, 4 mg after lunch, 4 mg after supper, and 8 mg at bedtime or 24 mg as a single dose or divided into 2 or 3 doses upon initiation. Day 2: 20 mg on day 2 administered as 4 mg before breakfast, 4 mg after lunch, 4 mg after supper, and 8 mg at bedtime. Day 3: 16 mg on day 3 administered as 4 mg before breakfast, 4 mg after lunch, 4 mg after supper, and 4 mg at bedtime. Day 4: 12 mg on day 4 administered as 4 mg before breakfast, 4 mg after lunch, and 4 mg at bedtime. Day 5: 8 mg on day 5 administered as 4 mg before breakfast and 4 mg at bedtime. Day 6: 4 mg on day 6 administered as 4 mg before breakfast. lidocaine 5 % adhesive patch,medicated 1 patch topical DAILY Qty: 15 0RF Rx Instructions: leave on most painful area for up to 12 hrs (DME) heating pads Pad See Rx Instructions .Route Qty: 1 0RF Rx Instructions: As directed buspirone 5 mg tablet 5 mg PO BID 90 Days Qty: 180 2RF hydroxyzine HCl 25 mg tablet 25 mg PO BID PRN (Reason: itching) 7 Days Qty: 14 0RF lisinopril 20 mg tablet 20 mg PO DAILY Qty: 90 1RF sertraline 50 mg tablet 50 mg PO DAILY 90 Days Qty: 90 1RF lidocaine 5 % adhesive patch,medicated 1 patch topical DAILY 30 Days Qty: 30 3RF Rx Instructions: leave on most painful area for up to 12 hrs ibuprofen 800 mg tablet 800 mg PO Q8H PRN (Reason: pain) 30 Days Qty: 90 1RF tramadol 50 mg tablet 50 mg PO BID 7 Days Qty: 14 2RF cyclobenzaprine 10 mg tablet 10 mg PO BEDTIME 14 Days Qty: 14 3RF sildenafil 100 mg tablet 100 mg PO DAILY 14 Days Qty: 14 2RF Rx Instructions: administer 30 minutes to 4 hours before activity Referrals: [facility] [Provider Group, Sports Medicine] [facility] [Outside] Jhoan Watts PA-C [Primary Care Provider, Internal Medicine] Don Taylor MD, PhD [Physician, Neuro Spine] Stand Alone Forms: Work/School Release Interventions: ED Discharge Assessment Last Done: 04/13/25 17:58 Discharge Date/Time: 04/13/25 17:59 Print Language: Singaporean
[2025-04-13 11:59] LABS: Hematocrit 48.0 % (42.0-52.0); Hemoglobin 16.1 g/dl (14.0-18.0); Mean Corpuscular HGB Conc 33.5 g/dl (31.0-36.0); Mean Corpuscular Hemoglobin 31.4 pg (27.0-33.0); Mean Corpuscular Volume 93.6 fL (80.0-98.0); NRBC Abs Auto 0.000 X10*3/uL (0.0-0.012); NRBC Pct Auto 0.0 /100WBC (0.0-0.2); Platelet Count 261 X10*3/uL (160-400); Red Blood Count 5.13 X10*6/uL (4.60-5.80); White Blood Count 23.4 X10*3/uL (4.8-10.8)
[2025-04-13 12:17] LABS: Alanine Aminotransferase 22 U/L (0-40); Albumin Level 4.7 g/dL (3.5-5.0); Alkaline Phosphatase 84 U/L (39-117); Anion Gap 11 (12-20); Aspartate Amino Transferase 16 U/L (5-37); Blood Urea Nitrogen 16 mg/dL (9-16); Calcium 9.6 mg/dL (8.4-10.2); Carbon Dioxide 26 mmol/L (22-29); Chloride 107 mmol/L (96-108); Creatinine Clr Calc Pharmacy 106.9; Estimated Glomerular Filt Rate > 60; Lipase 14 U/L (8-78); Potassium 5.2 mmol/L (3.3-5.1); Sodium 139 mmol/L (135-145); Total Protein 7.6 g/dL (6.5-8.0)
[2025-04-13 12:21] LABS: Appearance Urine Clear; Glucose Urine UA Negative (Negative); PH 6.0 (5.0-9.0); Specific Gravity - Urine 1.015 (1.005-1.025); UMIC TRIGGER UACC YES
[2025-04-13 12:53] VITALS: BP 120/73; PULSE 75; RESP 16; TEMP 36.5; O2SAT 97
[2025-04-13 13:43] LABS: Band Neutrophils Percent 0 % (3-5); Lymphocytes Absolute Manual 6.8 X10*3/uL (1.2-4.9); Lymphocytes Percent Manual 29 % (20-40); Monocytes Absolute Manual 1.9 X10*3/uL (0.1-1.2); Monocytes Percent Manual 8 % (2-11); Neutrophils Absolute Manual 14.7 X10*3/uL (2.0-8.3); Neutrophils Percent Manual 63 % (45-73)
[2025-04-13] MEDS: iohexoL 350 MG/ML 100 ML INFUS..BTL IV (13:43)
[2025-04-13 13:44] LABS: Large Platelet PRESENT; RBC Morphology NORMAL
[2025-04-13 15:10] VITALS: RESP 12
[2025-04-13 15:59] VITALS: BP 133/88; PULSE 75; RESP 20; TEMP 36.7; O2SAT 98
[2025-04-13 17:50] VITALS: RESP 14
[2025-04-13 17:58] VITALS: BP 133/88; PULSE 75; RESP 14; TEMP 36.6; O2SAT 95
== END 2025-04-13 17:59 | disposition home or self-care (01) ==
PROVIDERS: Physician Assistant; Emergency Provider Emergency Medicine; PCP Physician Assistant
DX: M54.50 Low back pain, unspecified (principal); R10.A1 Flank pain, right side; M79.10 Myalgia, unspecified site; F17.210 Nicotine dependence, cigarettes, uncomplicated; Z79.899 Other long term (current) drug therapy
CPT/HCPCS: 36415; 74177; 80053; 81001; 83690; 85007; 85025; 85027; 85652; 86140; 96374; 99284; 99285; J2270; Q9967

== ENCOUNTER → 2025-04-13 12:55 | Outpatient (BNV) | payer OTHER, SELFPAY | PROVIDERS: Emergency Provider Emergency Medicine; PCP Physician Assistant; Visit Provider Radiology Diagnostic Radiology | DX: K57.30 Diverticulosis of large intestine without perforation or abscess without bleeding (principal) | CPT/HCPCS: 74177 ==

== ENCOUNTER 2025-04-16 10:25 | Outpatient (AMB) | payer OTHER, SELFPAY ==
--- NOTE | 2025-04-16 10:33 | MHC.PC.OV ---
Vital Signs 04/16/25 10:34 Height 5 ft 11 in Weight 261 lb 2 oz BMI 36.4 BP 132/70 Blood Pressure Location Lt brachial Position Sitting Pulse 97 Pulse Source Pulse Oximeter Temp 97.3 F Temp Source Temporal Artery Scan Pulse Oximetry (%) 97 Oxygen Delivery Method Room Air Intake Visit Reasons: [facility] 04/11 Intake Note: Patient is here to follow-up after a visit the emergency department at [facility] on 04/11/25 and 04/13/25 Public Services Librarian Required: No Market Research Associate: Present Accompanied by: Spouse Allergies Penicillins (PENICILLINS) Allergy (Unknown, Verified 04/16/25 10:34) UNKOWN Medication List - Last Reconciled 04/16/25 by Lizabeth June MD buspirone 5 mg PO BID 90 days cyclobenzaprine 10 mg PO BEDTIME PRN cyclobenzaprine 10 mg PO BEDTIME 14 days heating pads As directed hydroxyzine HCl 25 mg PO BID PRN 7 days ibuprofen 800 mg PO Q8H PRN 30 days lidocaine 5% 1 patch topical DAILY lidocaine 5% 1 patch topical DAILY 30 days lisinopril 20 mg PO DAILY methylprednisolone (Medrol ([place])) 4 mg PO DAILY morphine 15 mg PO Q6H PRN 7 days naloxone 4 mg/actuation (Narcan) 4 mg intranasal Q2M PRN naproxen 500 mg PO Q12H PRN Held on 03/19/25. Instructions: Doctor's Order sertraline 50 mg PO DAILY 90 days sildenafil 100 mg PO DAILY 14 days tramadol 50 mg PO BID PRN 3 days tramadol 50 mg PO BID 7 days trazodone 50 mg PO BEDTIME 90 days Tobacco use date assessed: 04/16/25 Dental Screening Dental Screen Date: 03/19/25 HPI HPI Comments History of Present Illness Details The patient is a 50-year-old male presenting with right-sided back pain. The back pain began recently and is located on the right side, radiating to the arm, and is exacerbated by movement such as lifting the arm or bending down. The pain is severe enough to cause the patient to scream and has not been relieved by Toradol, which was previously effective. The patient was recently seen in the ED 04/13/2025 for the same pain and he was prescribed Morphine 15 mg every 8 hours. The sopurce of pain is unclear although the patient has cyst on the right kidney. The patient has a history of a kidney cyst, which was identified on a CT scan. The cyst has not ruptured but is associated with hematuria. The patient has been unable to urinate effectively, which may be related to a possible prostate. The patient has been on morphine for pain management for the past five days, with two days remaining, and has not been able to work due to the severity of the pain. Previous attempts to manage the pain with tramadol once per day were ineffective, and there is concern about long-term morphine use. The patient is scheduled to see a wire coiler machine operator and a urologist for further evaluation of the kidney and urinary issues. [facility] Medical History Erectile dysfunction H. pylori infection COVID-19 virus infection Low back pain GERD (gastroesophageal reflux disease) Depression Umbilical hernia Surgical History Hx of colonoscopy History of esophagogastroduodenoscopy (EGD) History of appendectomy Family History Father No problems noted. Mother Osteoarthritis Alzheimer dementia Maternal Aunt Cancer Social History Housing: House Are you a primary child care education coordinator to a significant other at home: No Do you presently have visiting nurse or other home services: No Alcohol intake: current Alcohol intake frequency: holidays/special occasions only Alcohol type: beer Patient Tobacco Use Status: Current everyday Tobacco user Tobacco use type: Cigarette Cigarette Packs Per Day: 0.5 Cigarettes Per Day: 7 Years Smoked: 30 e-Cigarette/Vaping Use: Never Used Second Hand Smoke Exposure: Yes service: No Current occupational status: employed Cognitive needs: No Hearing needs: No Vision needs: No Questionnaire Thrive Questionnaire Date Thrive assessed: 08/15/24 I am a: Patient What is your living situation today?: I have a steady place to live Within the past 12 months, did the food you bought not last and you didn't have the money to get more?: I choose not to answer this question Within the past 12 months, did you worry whether your food would run out before you got money to buy more?: I choose not to answer this question Do you have trouble paying for medicines?: I choose not to answer this question Do you have trouble getting transportation to medical appointments?: I choose not to answer this question Do you have trouble paying your heating and electricity bill?: I choose not to answer this question Do you have trouble taking care of your child, family member or friend?: I choose not to answer this question Do you have trouble with day-to-day activities such as bathing, preparing meals, shopping, managing finances, etc.?: I choose not to answer this question Are you currently unemployed and looking for a job?: I choose not to answer this question Are you interested in more education?: I choose not to answer this question Please select the resources that you would like help with: None Currently or been in a relationship where the following occur: I choose not to answer THRIVE Score: 0 JAKUB-7 AMB Questionnaire JAKUB-7 Date JAKUB - 7 assessed: 11/16/24 Source: Developed by Drs. Darrell Lewis, Ainsley Aquino, Irwin Lora and colleagues, with an educational dalila from [email or web address]. Review of Systems Const Details: Positives besides what was mentioned in HPI are in BOLD Constitutional: No Weight Change, No Fever, No Chills, No Night Sweats, No Fatigue, No Malaise ENT/Mouth: No Hearing Changes, No Ear Pain, No Nasal Congestion, No Sinus Pain, No Hoarseness, No sore throat, No Rhinorrhea, No Swallowing Difficulty Eyes: No Eye Pain, No Swelling, No Redness, No Foreign Body, No Discharge, No Vision Changes Cardiovascular: No Chest Pain, No SOB, No PND, No Dyspnea on Exertion, No Orthopnea, No Claudication, No Edema, No Palpitations Respiratory: No Cough, No Sputum, No Wheezing, No Smoke Exposure, No Dyspnea Gastrointestinal: No Nausea, No Vomiting, No Diarrhea, No Constipation, No Pain, No Heartburn, No Anorexia, No Dysphagia, No Hematochezia, No Melena, No Flatulence, No Jaundice Genitourinary: No Dysmenorrhea, No DUB, No Dyspareunia, No Dysuria, No Urinary Frequency, No Hematuria, No Urinary Incontinence, No Urgency, No Flank Pain, No Urinary Flow Changes, No Hesitancy Musculoskeletal: No Arthralgias, No Myalgias, No Joint Swelling, No Joint Stiffness, No Back Pain, No Neck Pain, No Injury History Skin: No Skin Lesions, No Pruritis, No Hair Changes, No Breast/Skin Changes, No Nipple Discharge Neuro: No Weakness, No Numbness, No Paresthesias, No Loss of Consciousness, No Syncope, No Dizziness, No Headache, No Coordination Changes, No Recent Falls Psych: No Anxiety/Panic, No Depression, No Insomnia, No Personality Changes, No Delusions, No Rumination, No SI/HI/AH/VH, No Social Issues, No Memory Changes, No Violence/Abuse Hx., No Eating Concerns Heme/Lymph: No Bruising, No Bleeding, No Transfusions History, No Lymphadenopathy Endocrine: No Polyuria, No Polydipsia, No Temperature Intolerance Physical exam (Primary Care) Vital Signs: Last Vital Signs Temp 97.3 F 04/16/25 10:34 Pulse 97 04/16/25 10:34 BP 132/70 04/16/25 10:34 Pulse Ox 97 04/16/25 10:34 Oxygen Delivery Method Room Air 04/16/25 10:34 BMI result Body Mass Index 36.4 Tobacco/Smoking Status: Tobacco use Status Tobacco use date assessed 04/16/25 04/16/25 10:41 Patient Tobacco Use Status Current everyday Tobacco 04/16/25 10:41 Tobacco use type Cigarette 04/16/25 10:41 e-Cigarette/Vaping Use Never Used 04/16/25 10:41 Thrive Assessment: Date of Thrive Assessment Date Thrive assessed 08/15/24 04/16/25 10:41 Currently or been in a relationship where the following occur: I choose not to answer Const Other: Pertinent findings are in BOLD GENERAL APPEARANCE NAD, activity normal for age, well developed/ well nourished, no cyanosis, pallor, or diaphoresis. EYES lids/conjunctiva normal. EARS/NOSE/THROAT Mucous membranes moist, nares normal, lips/teeth normal uvula midline without oral pharyngeal erythema, exudate or swelling TMs normal bilaterally. No lymphangitis/lymphedema. HEAD/NECK normocephalic atraumatic, no facial trauma, neck is supple. RESPIRATORY respiratory effort normal, speaks in full sentences, no tripod position, no accessory muscle use. Lungs clear to auscultation without rhonchi, wheezes, rales CARDIAC Regular rate and rhythm, no edema. ABDOMINAL Soft, ND/NT. No evidence of fluid wave. No pulsatile masses on exam, rebound tenderness, Grande sign or pain over Mcburney's point. MUSCLES/EXTREMITIES No abnormal range of motion, no swelling. Tenderness on lower upper back with palpation. SKIN Warm, pink and dry. No rashes, dermatoses, petechiae or lesions. NEUROLOGICAL Speech is clear and appropriate. Normal level of consciousness. Gait and coordination are normal. 5/5 strength in all extremities. PSYCH Normal mood and affect. Judgement/competence is appropriate Coding Level of Care Code Est Pt Level 3 (36275) Diagnoses Kidney cysts N28.1 Acute right-sided thoracic back pain M54.6 Urinary retention R33.9 Time Spent (min) 20 Assessment & Plan Assessment & Plan (1) Kidney cysts: Code(s): N28.1 - Cyst of kidney, acquired Category: Medical Plan: - Referral to urology for assessment of the cyst and associated symptoms. - Paitent planned to see Nephrology 04/25. (2) Acute right-sided thoracic back pain: Code(s): M54.6 - Pain in thoracic spine Category: Medical Plan: PAtient was recently prescribed Morphine 15 mg Q6hr after a recent ED visit. The patient reports he still have 2 days worth of Morphine. The patient pain is reported 9/ when the Morphine effect wears off. Patient and patient's concrened about the reccurence of the pain as it has been affecting his ability to work, sleep, do daily activities. Tramadol 50 mg BID for 5 days was prescribed to help with the pain. Advised patient that this is not a snf plan and that we need to evaluate for further pain causes if he continues to be in pain. Advised patient not to combine Tramadol and Morphine due to increased risk of respiratory inhibitory effect. The plan is to have the patient getting evaluated by Urology and nephrology to assist with management of potential kidney problems. (3) Urinary retention: Code(s): R33.9 - Retention of urine, unspecified Category: Medical Plan: Urology referral to assist with symptoms. Plan I discussed with the patient the complexity of his symptoms, including right-sided back pain and urinary issues, and the need for further evaluation by specialists. We talked about the potential causes, including kidney cysts and possible prostate issues, and the importance of seeing both a wire coiler machine operator and a urologist. I explained the plan to manage his pain with tramadol as an alternative to morphine to avoid long-term opioid use. Orders: Referrals Urology Referral N28.1 - Cyst of kidney, acquired Medications: New tramadol 50 mg PO BID PRN 10 tabs 0RF pain lidocaine 4% 1 patch topical BID PRN 10 ea 0RF pain
[2025-04-16 10:34] VITALS: BP 132/70; PULSE 97; TEMP 36.3; O2SAT 97; BMI 36.4
== END 2025-04-16 11:23 | disposition home or self-care (01) ==
LOC: HO.HMCH 10:26
PROVIDERS: PCP Physician Assistant; Visit Provider Internal Medicine
DX: N28.1 Cyst of kidney, acquired (principal); M54.6 Pain in thoracic spine; R33.9 Retention of urine, unspecified

== ENCOUNTER 2025-04-25 09:04 | Outpatient (REF) | payer OTHER, SELFPAY ==
[2025-04-25 13:17] LABS: Appearance Urine Clear; Glucose Urine UA Negative (Negative); PH 5.5 (5.0-9.0); Specific Gravity - Urine 1.020 (1.005-1.025); UMIC TRIGGER UA YES
[2025-04-25 13:40] LABS: Hematocrit 51.3 % (42.0-52.0); Hemoglobin 16.5 g/dl (14.0-18.0); Imm Gran Abs Auto 0.06 X10*3/uL (0.00-0.03); Imm Gran Pct Auto 0.3 % (0.0-0.4); MANUAL DIFF FLAG SCAN; Mean Corpuscular HGB Conc 32.2 g/dl (31.0-36.0); Mean Corpuscular Hemoglobin 30.6 pg (27.0-33.0); Mean Corpuscular Volume 95.2 fL (80.0-98.0); NRBC Abs Auto 0.000 X10*3/uL (0.0-0.012); NRBC Pct Auto 0.0 /100WBC (0.0-0.2); Platelet Count 278 X10*3/uL (160-400); Red Blood Count 5.39 X10*6/uL (4.60-5.80); SCAN SMEAR FLAG 1; White Blood Count 18.5 X10*3/uL (4.8-10.8)
[2025-04-25 13:48] LABS: Lymphocytes Absolute Auto 9.8 X10*3/uL (1.2-4.9)
[2025-04-25 14:00] LABS: Anion Gap 14 (12-20); Blood Urea Nitrogen 10 mg/dL (9-16); Calcium 9.9 mg/dL (8.4-10.2); Carbon Dioxide 26 mmol/L (22-29); Chloride 106 mmol/L (96-108); Estimated Glomerular Filt Rate > 60; Potassium 4.8 mmol/L (3.3-5.1); Sodium 141 mmol/L (135-145)
[2025-04-25 14:11] LABS: Total Protein Urine Random 94 mg/dL (<12)
[2025-04-26 21:58] LABS: Prot Elec - Albumin 4.2 g/dL (3.8-4.8); Prot Elec - Alpha1 0.3 g/dL (0.2-0.3); Prot Elec - Alpha2 0.9 g/dL (0.5-0.9); Prot Elec - Beta 1 0.5 g/dL (0.4-0.6); Prot Elec - Beta 2 0.6 g/dL (0.2-0.5); Prot Elec - Gamma 0.9 g/dL (0.8-1.7); Prot Elec - Total Protein 7.4 g/dL (6.1-8.1)
[2025-04-26 22:29] LABS: Anti Glomerular Basement Memb <1.0 AI
[2025-04-27 11:24] LABS: Neutrophil Cyto Ab Screen NEGATIVE (NEGATIVE)
[2025-05-01 12:10] LABS: Anti Nuclear Antibody Screen NEGATIVE (NEGATIVE)
== END 2025-04-25 09:05 | disposition home or self-care (01) ==
LOC: HO.HKASLDS 09:04
PROVIDERS: PCP Physician Assistant; Referring Provider Physician Assistant; Visit Provider Internal Medicine Hypertension Specialist
DX: N28.1 Cyst of kidney, acquired (principal); I10 Essential (primary) hypertension; G89.29 Other chronic pain; M54.50 Low back pain, unspecified; Z01.84 Encounter for antibody response examination
CPT/HCPCS: 36415; 80048; 81001; 82550; 82570; 83520; 84156; 84165; 85025; 86036; 86038; 86160; 88112

== ENCOUNTER 2025-04-25 09:04 | Outpatient (AMB) | payer OTHER, SELFPAY ==
[2025-04-25 09:07] VITALS: BP 124/80; PULSE 115; O2SAT 95; BMI 35.7
--- NOTE | 2025-04-25 09:07 | HO.NEPHOV_ITS ---
Vital Signs 04/25/25 09:07 Height 5 ft 11 in Weight 256 lb BMI 35.7 BP 124/80 Blood Pressure Location Lt brachial Position Sitting Pulse 115 H Pulse Source Pulse Oximeter Pulse Oximetry (%) 95 Oxygen Delivery Method Room Air Intake Visit Reasons: INP: Proteinuria, unspecified confirmed Associate Professor Of Media Arts Required: Yes Associate Professor Of Media Arts Name: patsy [id number] Accompanied by: Self / Same As Patient Allergies Penicillins (PENICILLINS) Allergy (Unknown, Verified 04/25/25 09:08) UNKOWN Medication List - Last Reconciled 04/25/25 by Artur Dunbar MD buspirone 5 mg PO BID 90 days cyclobenzaprine 10 mg PO BEDTIME PRN heating pads As directed hydroxyzine HCl 25 mg PO BID PRN 7 days ibuprofen 800 mg PO Q8H PRN 30 days lidocaine 5% 1 patch topical DAILY lisinopril 20 mg PO DAILY morphine 15 mg PO Q6H PRN 7 days naloxone 4 mg/actuation (Narcan) 4 mg intranasal Q2M PRN naproxen 500 mg PO Q12H PRN Held on 03/19/25. Instructions: Doctor's Order sertraline 50 mg PO DAILY 90 days sildenafil 100 mg PO DAILY 14 days tramadol 50 mg PO BID PRN 3 days trazodone 50 mg PO BEDTIME 90 days HPI Comments Details: - The patient is a 50-year-old male presenting with microscopic hematuria and proteinuria. - Chronic low back pain evaluated with imaging revealed a renal cyst. - Arthritis-related changes in the lower spine noted by spine surgeon. - Pain managed with tramadol; naproxen discontinued due to renal concerns. - Hypertension managed with lisinopril for three years, blood pressure controlled. - Urinary symptoms include difficulty initiating urination, slow stream, microscopic hematuria detected. - Referral to nephrology for microscopic hematuria and proteinuria, normal kidney function. PFSH Medical History Erectile dysfunction H. pylori infection COVID-19 virus infection Low back pain GERD (gastroesophageal reflux disease) Depression Umbilical hernia Surgical History Hx of colonoscopy History of esophagogastroduodenoscopy (EGD) History of appendectomy Family History Father No problems noted. Mother Osteoarthritis Alzheimer dementia Maternal Aunt Cancer Social History Housing: House Are you a primary daycare provider to a significant other at home: No Do you presently have visiting nurse or other home services: No Alcohol intake: current Alcohol intake frequency: holidays/special occasions only Alcohol type: beer Patient Tobacco Use Status: Current everyday Tobacco user Tobacco use type: Cigarette Cigarette Packs Per Day: 0.5 Cigarettes Per Day: 7 Years Smoked: 30 e-Cigarette/Vaping Use: Never Used Second Hand Smoke Exposure: Yes service: No Current occupational status: employed Cognitive needs: No Hearing needs: No Vision needs: No Physical Exam Vital Signs: Last Vital Signs Pulse 115 H 04/25/25 09:07 BP 124/80 04/25/25 09:07 Pulse Ox 95 04/25/25 09:07 Oxygen Delivery Method Room Air 04/25/25 09:07 BMI result Body Mass Index 35.7 Results Reviewed Results Reviewed: MAR 2025 CT SCAN KIDNEYS/RETROPERITONEUM: No renal calculi are identified. There is no hydronephrosis. There is a 3.0 cm cyst at the lower pole of the right kidney. August 2024 [facility] Kidneys normal size and position with normal cortical width and echotexture. Bilateral renal cortical cysts with minimal complexity can be correlated with a dedicated CT or MRI abdomen with and without contrast renal protocol study. Nephrology Results: Hgb, (14.0-18.0) 16.1 g/dl 04/13/25 WBC, (4.8-10.8) 23.4 X10*3/uL H 04/13/25 Plt Count, (160-400) 261 X10*3/uL 04/13/25 Sodium, (135-145) 139 mmol/L 04/13/25 Potassium, (3.3-5.1) 5.2 mmol/L H 04/13/25 Chloride, (96-108) 107 mmol/L 04/13/25 Carbon Dioxide, (22-29) 26 mmol/L 04/13/25 BUN, (9-16) 16 mg/dL 04/13/25 Creatinine, (0.5-1.4) 1.07 mg/dL 04/13/25 Calcium, (8.4-10.2) 9.6 mg/dL 04/13/25 Urine Protein, (Neg-Trace) Trace mg/dL 04/13/25 Urine Creatinine 287.88 mg/dL 03/21/25 Renal US 09/08/24 Assessment & Plan Assessment & Plan (1) HTN (hypertension): Code(s): I10 - Essential (primary) hypertension Category: Medical Qualifiers: Hypertension type: primary hypertension Qualified Code(s): I10 - Essential (primary) hypertension (2) Microalbuminuria: Code(s): R80.9 - Proteinuria, unspecified Category: Medical Plan 1. Microscopic Hematuria Multifactorial Recent imaging was unremarkable - Conduct further diagnostic tests including blood and urine tests. - Follow-up in two to three weeks to review results. 2. Chronic Low Back Pain The imaging reviewed. And likely due to underlying renal issues - Continue tramadol for pain management. - Avoid NSAIDs due to renal concerns. 3. Hypertension - Continue lisinopril for blood pressure control. - Regular blood pressure monitoring. 4. Proteinuria - Evaluate with blood and urine tests. - Follow-up in two to three weeks for management discussion. 5. Renal Cyst - Monitor with periodic imaging. Orders: Orders AIDA Reflex Titer and Pattern Today I10 - Essential (primary) hypertension, N28.1 - Cyst of kidney, acquired, R80.9 - Proteinuria, unspecified Neutrophil Cytoplasma Ab Today I10 - Essential (primary) hypertension, N28.1 - Cyst of kidney, acquired, R80.9 - Proteinuria, unspecified Complement C4 Today I10 - Essential (primary) hypertension, N28.1 - Cyst of kidney, acquired, R80.9 - Proteinuria, unspecified Basic Metabolic Panel Today I10 - Essential (primary) hypertension, N28.1 - Cyst of kidney, acquired, R80.9 - Proteinuria, unspecified UA and rflx microscopic Today I10 - Essential (primary) hypertension, N28.1 - Cyst of kidney, acquired, R80.9 - Proteinuria, unspecified Complement C3 Today I10 - Essential (primary) hypertension, N28.1 - Cyst of kidney, acquired, R80.9 - Proteinuria, unspecified Anti Glomerular Basement Memb Today I10 - Essential (primary) hypertension, N28.1 - Cyst of kidney, acquired, R80.9 - Proteinuria, unspecified Protein Electrophoresis, Serum Today I10 - Essential (primary) hypertension, N28.1 - Cyst of kidney, acquired, R80.9 - Proteinuria, unspecified Complete Blood Count Auto Diff Today I10 - Essential (primary) hypertension, N28.1 - Cyst of kidney, acquired, R80.9 - Proteinuria, unspecified Total Protein Urine Random Today I10 - Essential (primary) hypertension, N28.1 - Cyst of kidney, acquired, R80.9 - Proteinuria, unspecified Creatinine Urine Today I10 - Essential (primary) hypertension, N28.1 - Cyst of kidney, acquired, R80.9 - Proteinuria, unspecified Creatine Kinase Total Today I10 - Essential (primary) hypertension, N28.1 - Cyst of kidney, acquired, R80.9 - Proteinuria, unspecified Urine Cytology Today R31.9 - Hematuria, unspecified Coding Level of Care Code New Pt Level 4 (47538) Diagnoses Primary hypertension I10 Hypertension type: primary hypertension Microalbuminuria R80.9
== END 2025-04-25 09:29 | disposition home or self-care (01) ==
LOC: HO.HKAS 09:05
PROVIDERS: PCP Physician Assistant; Referring Provider Physician Assistant; Visit Provider Internal Medicine Hypertension Specialist
DX: I10 Essential (primary) hypertension (principal); R80.9 Proteinuria, unspecified
CPT/HCPCS: 99204

== ENCOUNTER 2025-06-01 10:11 | Outpatient (REF) | payer OTHER, SELFPAY ==
[2025-06-01 13:38] LABS: Appearance Urine Cloudy; Glucose Urine UA Negative (Negative); PH 6.5 (5.0-9.0); Specific Gravity - Urine 1.020 (1.005-1.025); UMIC TRIGGER UA YES
== END 2025-06-01 10:12 | disposition home or self-care (01) ==
LOC: HO.HKASLDS 10:11
PROVIDERS: PCP Physician Assistant; Visit Provider Internal Medicine Hypertension Specialist
DX: I10 Essential (primary) hypertension (principal); N28.1 Cyst of kidney, acquired; R80.9 Proteinuria, unspecified
CPT/HCPCS: 81001; 81003

== ENCOUNTER 2025-06-06 10:24 | Outpatient (AMB) | payer OTHER, SELFPAY ==
[2025-06-06 10:32] VITALS: BP 136/88; PULSE 83; O2SAT 98; BMI 36.0
--- NOTE | 2025-06-06 10:32 | HO.NEPHOV_ITS ---
Vital Signs 06/06/25 10:32 Height 5 ft 11 in Weight 258 lb BMI 36.0 BP 136/88 Blood Pressure Location Lt brachial Position Sitting Pulse 83 Pulse Source Pulse Oximeter Pulse Oximetry (%) 98 Oxygen Delivery Method Room Air Intake Visit Reasons: 3-4 weeks follow up Flight Hostess Required: No Accompanied by: Self / Same As Patient Allergies Penicillins (PENICILLINS) Allergy (Unknown, Verified 06/06/25 10:34) UNKOWN Medication List - Last Reconciled 06/06/25 by Artur Dunbar MD buspirone 5 mg PO BID 90 days cyclobenzaprine 10 mg PO BEDTIME PRN heating pads As directed hydroxyzine HCl 25 mg PO BID PRN 7 days ibuprofen 800 mg PO Q8H PRN 30 days lidocaine 5% 1 patch topical DAILY lisinopril 20 mg PO DAILY morphine 15 mg PO Q6H PRN 7 days naloxone 4 mg/actuation (Narcan) 4 mg intranasal Q2M PRN naproxen 500 mg PO Q12H PRN Held on 03/19/25. Instructions: Doctor's Order sertraline 50 mg PO DAILY 90 days sildenafil 100 mg PO DAILY 14 days tramadol 50 mg PO BID PRN 3 days trazodone 50 mg PO BEDTIME 90 days HPI Comments Details: - The patient is a 50-year-old male presenting with microscopic hematuria and proteinuria. - Chronic low back pain evaluated with imaging revealed a renal cyst. - Arthritis-related changes in the lower spine noted by spine surgeon. - Pain managed with tramadol; naproxen discontinued due to renal concerns. - Hypertension managed with lisinopril for three years, blood pressure controlled. - Urinary symptoms include difficulty initiating urination, slow stream, microscopic hematuria detected. - Referral to nephrology for microscopic hematuria and proteinuria, normal kidney function. 06/06/25 The patient is a 50-year-old male presenting for evaluation of microscopic hematuria and pain. He has a history of persistent microscopic hematuria that has been present for a long time, with prior workups being largely negative. Imaging including an ultrasound and CT scan revealed a renal cyst but otherwise normal kidneys with no stones. Urinalysis has shown no proteinuria. The patient also reports pain on the right side which he has had for three to four months, and he believes it is not muscular in nature. He previously received a nerve block for low back pain which was effective, but this current pain is in a different, higher location. He notes a history of urinary hesitancy at the beginning of his symptoms, but this has since resolved. [facility] Medical History Erectile dysfunction H. pylori infection COVID-19 virus infection Low back pain GERD (gastroesophageal reflux disease) Depression Umbilical hernia Surgical History Hx of colonoscopy History of esophagogastroduodenoscopy (EGD) History of appendectomy Family History Father No problems noted. Mother Osteoarthritis Alzheimer dementia Maternal Aunt Cancer Social History Housing: House Are you a primary career resource specialist to a significant other at home: No Do you presently have visiting nurse or other home services: No Alcohol intake: current Alcohol intake frequency: holidays/special occasions only Alcohol type: beer Patient Tobacco Use Status: Current everyday Tobacco user Tobacco use type: Cigarette Cigarette Packs Per Day: 0.5 Cigarettes Per Day: 7 Years Smoked: 30 e-Cigarette/Vaping Use: Never Used Second Hand Smoke Exposure: Yes service: No Current occupational status: employed Cognitive needs: No Hearing needs: No Vision needs: No Physical Exam Vital Signs: Last Vital Signs Pulse 83 06/06/25 10:32 BP 136/88 06/06/25 10:32 Pulse Ox 98 06/06/25 10:32 Oxygen Delivery Method Room Air 06/06/25 10:32 BMI result Body Mass Index 36.0 Comfortable Neck supple no JVD. Lungs entry equal no rales. Heart S1-S2 heard no gallop or rub. Abdomen soft nontender. Neuro alert awake oriented. No asterixis. Extremities no edema. Results Reviewed Nephrology Results: Hgb, (14.0-18.0) 16.5 g/dl 04/25/25 WBC, (4.8-10.8) 18.5 X10*3/uL H 04/25/25 Plt Count, (160-400) 278 X10*3/uL 04/25/25 Sodium, (135-145) 141 mmol/L 04/25/25 Potassium, (3.3-5.1) 4.8 mmol/L 04/25/25 Chloride, (96-108) 106 mmol/L 04/25/25 Carbon Dioxide, (22-29) 26 mmol/L 04/25/25 BUN, (9-16) 10 mg/dL 04/25/25 Creatinine, (0.5-1.4) 1.07 mg/dL 04/25/25 Calcium, (8.4-10.2) 9.9 mg/dL 04/25/25 Urine Protein, (Neg-Trace) Trace mg/dL 06/01/25 Urine Creatinine 356.30 mg/dL 04/25/25 Renal US 09/08/24 Assessment & Plan Assessment & Plan (1) HTN (hypertension): Code(s): I10 - Essential (primary) hypertension Category: Medical Qualifiers: Hypertension type: primary hypertension Qualified Code(s): I10 - Ess ential (primary) hypertension (2) Microalbuminuria: Code(s): R80.9 - Proteinuria, unspecified Category: Medical (3) Microhematuria: Code(s): R31.29 - Other microscopic hematuria Category: Medical Plan 1.Microhematuria Urology referal ( Jun 2025) 2. Chronic Low Back Pain The imaging reviewed. And likely due to underlying renal issues - Continue tramadol for pain management. - Avoid NSAIDs due to renal concerns. Follow up with PCP 3. Hypertension - Continue lisinopril for blood pressure control. - Regular blood pressure monitoring. 4. Proteinuria Has persistent microhematuria No proteiuria SErologies negative ia 5. Renal Cyst - Refer to Urology. [facility] appointment in Jun 2025 Orders: Referrals Urology Referral N28.1 - Cyst of kidney, acquired, R31.29 - Other microscopic hematuria Coding Level of Care Code Est Pt Level 4 (60656) Diagnoses Primary hypertension I10 Hypertension type: primary hypertension Microalbuminuria R80.9 Microhematuria R31.29
== END 2025-06-06 10:49 | disposition home or self-care (01) ==
LOC: HO.HKAS 10:25
PROVIDERS: PCP Physician Assistant; Visit Provider Internal Medicine Hypertension Specialist
DX: I10 Essential (primary) hypertension (principal); R80.9 Proteinuria, unspecified; R31.29 Other microscopic hematuria
CPT/HCPCS: 99214

== ENCOUNTER 2025-06-27 07:59 | Outpatient (AMB) | payer OTHER, SELFPAY ==
[2025-06-27 08:02] VITALS: BP 160/92; PULSE 101; TEMP 36.3; O2SAT 98; BMI 35.5
--- NOTE | 2025-06-27 08:02 | MHC.PC.OV ---
Vital Signs 06/27/25 08:02 Height 5 ft 11 in Weight 254 lb 8 oz BMI 35.5 BP 160/92 H Blood Pressure Location Lt brachial Position Sitting Pulse 101 H Pulse Source Pulse Oximeter Temp 97.3 F Temp Source Temporal Artery Scan Pulse Oximetry (%) 98 Oxygen Delivery Method Room Air Intake Visit Reasons: 3mth f/u Allergies Penicillins (PENICILLINS) Allergy (Unknown, Verified 06/27/25 08:15) UNKOWN Medication List - Last Reconciled 06/27/25 by Jhoan Watts PA-C buspirone 5 mg PO BID 90 days cyclobenzaprine 10 mg PO BEDTIME PRN heating pads As directed hydroxyzine HCl 25 mg PO BID PRN 7 days ibuprofen 800 mg PO Q8H PRN 30 days lidocaine 5% 1 patch topical DAILY lisinopril 20 mg PO DAILY naloxone 4 mg/actuation (Narcan) 4 mg intranasal Q2M PRN naproxen 500 mg PO Q12H PRN Held on 03/19/25. Instructions: Doctor's Order sertraline 50 mg PO DAILY 90 days sildenafil 100 mg PO DAILY 14 days tramadol 50 mg PO BID PRN 3 days trazodone 50 mg PO BEDTIME 90 days Tobacco use date assessed: 06/27/25 Dental Screening Dental Screen Date: 06/27/25 Did you have a dental visit in the last 12 months?: No Did you have a dental problem in the last 6 months where you did not have access to dental care?: No Was dental information given to patient?: No HPI 3mth f/u HPI Details Patient is a 50-year-old male here today a follow-up visit ? Patient has a past medical history significant for GERD, tobacco dependency, chronic lumbar spine pain, obesity. Thoracic radiculitis: He reports persistent mid-back pain that is always present and sometimes feels like a spasm or a squeezing sensation. He recently saw a manager of construction for flank pain, microhematuria, and proteinuria, and was told the pain is not related to his kidneys or a kidney cyst. An X-ray of the thoracic spine from March showed moderate multilevel spondylosis. He states that tramadol is no longer effective for his pain, and cyclobenzaprine and lidocaine patches also provide no relief for his current back pain. His prior low back pain has resolved, and he notes that physical therapy did not work for him in the past. Hematuria: Patient has followed up with a manager of construction about his flank pain and hematuria. Was found to be a 3.0 cm cyst at the lower pole of the right kidney. .. Leukocytosis: Lab work from March revealed a persistently elevated white blood cell count, a finding that has been present for a couple of years. He has never seen a environmental associate for this issue. The patient smokes about 5-7 cigarettes a day, a reduction from his previous usage, but reports that quitting has been difficult due to significant life stressors. .. Anxiety: He does report having increased anxiety as of late due to stress and personal matters. He is interested in increasing his dose of sertraline to help him with his anxiety and depression. Again due to his elevation in his anxiety and depression he is interested now speaking with a mental therapist again. Hypertension: Patient's blood elevated today in office in 160 systolic, he reports he is asymptomatic at this time without any chest pain, shortness of breath or headaches. He does understand he needs to quit smoking and reduce his caffeine intake. --> PLAN: Will add on hydrochlorothiazide to his blood pressure med regime to better control his blood pressure Smoker: He reports he has reduced his smoking down to 4 packs of cigarettes per week from 7 Packs He is proud about this. Laboratory Tests 04/27/23 04/27/23 08/10/24 07:13 07:20 07:30 WBC 14.2 H RBC 5.26 Potassium Creatinine 0.94 Fasting Glucose 98 Total Creatine Kin ase PSA Screen 1.05 Urine Blood Urine Microalbumin 326.0 Microalb/Creat Rat io 141.3 H 08/10/24 08/10/24 02/16/25 07:36 07:38 08:48 WBC RBC Potassium Creatinine 0.85 Fasting Glucose Total Creatine Kin ase PSA Screen 0.93 Urine Blood Urine Microalbumin 76.0 Microalb/Creat Rat io 02/16/25 04/13/25 04/25/25 08:52 11:51 09:46 WBC 23.4 H 18.5 H RBC Potassium 4.6 Creatinine 0.97 Fasting Glucose Total Creatine Kin ase 190 H PSA Screen 1.05 Urine Blood Large (3+) H Urine Microalbumin Microalb/Creat Rat io 06/01/25 10:15 WBC RBC Potassium Creatinine Fasting Glucose Total Creatine Kin ase PSA Screen Urine Blood Moderate (2+) H Urine Microalbumin Microalb/Creat Rat io [facility] Medical History Erectile dysfunction H. pylori infection COVID-19 virus infection Low back pain GERD (gastroesophageal reflux disease) Depression Umbilical hernia Surgical History Hx of colonoscopy History of esophagogastroduodenoscopy (EGD) History of appendectomy Family History Father No problems noted. Mother Osteoarthritis Alzheimer dementia Maternal Aunt Cancer Social History Housing: House Are you a primary healthcare or medical to a significant other at home: No Do you presently have visiting nurse or other home services: No Alcohol intake: current Alcohol intake frequency: holidays/special occasions only Alcohol type: beer Patient Tobacco Use Status: Current everyday Tobacco user Tobacco use type: Cigarette Cigarette Packs Per Day: 0.5 Cigarettes Per Day: 7 Years Smoked: 30 e-Cigarette/Vaping Use: Never Used Second Hand Smoke Exposure: Yes service: No Current occupational status: employed Cognitive needs: No Hearing needs: No Vision needs: No Questionnaire PHQ-9 Over the last 2 weeks, how often have you been bothered by any of the following problems? 1. Little interest or pleasure in doing things: nearly every day 2. Feeling down, depressed, or hopeless: nearly every day 3. Trouble falling or staying asleep, or sleeping too much: nearly every day 4. Feeling tired or having little energy: nearly every day 5. Poor appetite or overeating: more than half the days 6. Feeling bad about yourself - or that you are a failure or have let yourself or your family down: nearly every day 7. Trouble concentrating on things, such as reading the newspaper or watching television: nearly every day 8. Moving or speaking so slowly that other people could have noticed. Or the opposite - being so fidgety or restless that you have been moving around a lot more than usual: nearly every day 9. Thoughts that you would be better off or of hurting yourself in some way: nearly every day Total score: 26 Depression Screening Interpretation: Positive Depression Screening Follow-up: Existing condition Depression Screening Done: Yes 52174 - PHQ-9 Billing: Yes Source: Developed by Drs. Darrell Lewis, Ainsley Aquino, Irwin Lora and colleagues, with an educational dalila from [employer]. Thrive Questionnaire Date Thrive assessed: 08/15/24 I am a: Patient What is your living situation today?: I have a steady place to live Within the past 12 months, did the food you bought not last and you didn't have the money to get more?: I choose not to answer this question Within the past 12 months, did you worry whether your food would run out before you got money to buy more?: I choose not to answer this question Do you have trouble paying for medicines?: I choose not to answer this question Do you have trouble getting transportation to medical appointments?: I choose not to answer this question Do you have trouble paying your heating and electricity bill?: I choose not to answer this question Do you have trouble taking care of your child, family member or friend?: I choose not to answer this question Do you have trouble with day-to-day activities such as bathing, preparing meals, shopping, managing finances, etc.?: I choose not to answer this question Are you currently unemployed and looking for a job?: I choose not to answer this question Are you interested in more education?: I choose not to answer this question Currently or been in a relationship where the following occur: I choose not to answer THRIVE Score: 0 AUDIT C Alcohol Use Questionnaire (AUDIT-C) 1. How often do you have a drink containing alcohol?: 2-4 times a month 2. How many drinks containing alcohol do you have on a typical day when you are drinking?: 7 to 9 3. How often do you have six or more drinks on one occasion?: Weekly Total Score: 8 JAKUB-7 AMB Questionnaire JAKUB-7 Date JAKUB - 7 assessed: 11/16/24 Feeling nervous, anxious, or on edge: 3 = Nearly every day Not being able to stop or control worryin = Nearly every day Worrying too much about different things: 3 = Nearly every day Trouble relaxin = Nearly every day Being so restless that it is hard to sit still: 3 = Nearly every day Becoming easily annoyed or irritable: 3 = Nearly every day Feeling afraid as if something awful might happen: 3 = Nearly every day Total JAKUB-7 score (0-4 normal; 5-9 mild; 10-14 moderate; 15-21 severe): 21 Source: Developed by Drs. Darrell Lewis, Ainsley Aquino, Irwin Lora and colleagues, with an educational dalila from [employer]. Review of Systems Const Denies headache(s) Eyes Denies loss of vision ENT Denies vertigo, Denies dizziness, Denies headache(s) and Denies sore throat Card Denies chest pain, Denies leg edema and Denies lightheadedness Resp Denies cough, Denies hemoptysis and Denies wheezing GI Denies abdominal pain, Denies melena, Denies constipation, Denies diarrhea and Denies vomiting Denies dysuria, Denies urinary frequency and Denies urinary urgency Musc Denies arthralgias, Denies joint swelling, Denies numbness and Denies tingling Neuro Denies Abnormal speech present, Denies behavioral changes, Denies vertigo, Denies dizziness, Denies headache(s), Denies loss of vision, Denies memory loss, Denies numbness and Denies tingling Psych Denies anxiety, Denies behavioral changes, Denies depression, Denies memory loss and Denies panic attacks Arnaldo/Lymph Denies easy bleeding and Denies easy bruising Aller/Immun Denies wheezing Physical exam (Primary Care) Vital Signs: Last Vital Signs Temp 97.3 F 06/27/25 08:02 Pulse 101 H 06/27/25 08:02 BP 160/92 H 06/27/25 08:02 Pulse Ox 98 06/27/25 08:02 Oxygen Delivery Method Room Air 06/27/25 08:02 BMI result Body Mass Index 35.5 Tobacco/Smoking Status: Tobacco use Status Tobacco use date assessed 06/27/25 06/27/25 08:09 Patient Tobacco Use Status Current everyday Tobacco 06/27/25 08:09 Tobacco use type Cigarette 06/27/25 08:09 e-Cigarette/Vaping Use Never Used 06/27/25 08:09 Are you ready to quit: No Tobacco cessation counseling provided: Yes Items discussed: Nicotine replacement Relapse Prevention: discussed the importance of a supportive environment, discussed negative mood or depression after quitting, weight gain after smoking is common and discussed dietary, exercise and/or lifestyle changes Number of minutes spent counselin CPT code: 91572 - 4-10 Minutes PHQ-9: PHQ-9 Score PHQ-9: Total score 26 06/27/25 09:00 Depression Screening Interpretation: Positive Depression Screening Follow-up: Existing condition Thrive Assessment: Date of Thrive Assessment Date Thrive assessed 08/15/24 06/27/25 08:09 Currently or been in a relationship where the following occur: I choose not to answer Const General: healthy appearing, no acute distress, alert and awake Nutritional Appearance: well nourished Orientation/consciousness: oriented to person, oriented to place and oriented to time HENMT Ears: TM's normal bilaterally General nose exam: Normal nasal mucous membranes and turbinates present Eyes Conjunctivae: conjunctivae normal Sclerae: sclerae normal Pupils: Equal, round and reactive pupils present Neck Neck: Yes no lymphadenopathy and Yes no JVD Thyroid: Thyroid normal Carotids: no bruits Resp Effort & Inspection: normal respiratory effort and not tachypneic Auscultation: no crackles, no rales, no rhonchi and no wheezes Cardio Rate: regular rate Rhythm: regular rhythm Heart sounds: no murmurs and normal S1 and S2 GI Palpation (GI): Soft to palpation, nontender, no hepatomegaly and no splenomegaly Auscultation: normal bowel sounds Skin General skin exam: no rashes or lesions noted and dry skin Neuro General: oriented to person, oriented to place and oriented to time Cranial nerves: Yes Equal, round and reactive pupils present Speech: No Abnormal speech present Gait exam (Neuro): Normal gait present Motor exam (neuro): no tremor noted Extrem Right upper extremity: full ROM Left upper extremity: full ROM Right lower extremity: full ROM; no edema Left lower extremity: full ROM; no edema Psych Mental Status: mental status grossly normal Speech and movement: Normal speech and movement present Affect: normal affect Attitude: cooperative Thought process: Normal thought process present Coding Level of Care Code Est Pt Level 4 (28709) Diagnoses Thoracic radiculitis M54.14 Leukocytosis, unspecified type D72.829 Leukocytosis type: unspecified Primary hypertension I10 Hypertension type: primary hypertension Tobacco dependence F17.200 Additional Codes PHQ-9 - 48861 - PHQ-9 Billing: Yes ([id number]) Vital Signs *Quality* - CPT code: 09692 - 4-10 Minutes ([id number]) Assessment & Plan Assessment & Plan (1) Thoracic radiculitis: Code(s): M54.14 - Radiculopathy, thoracic region Category: Medical Plan: I discussed with the patient that his persistent mid-back pain is most likely musculoskeletal, originating from his thoracic spine, especially since his kidney doctor ruled out a renal cause. I explained that his October X-ray showed moderate arthritis in that area. We discussed a plan to obtain an MRI of the thoracic spine and refer him to Pain Management, noting that insurance might require a trial of physical therapy before approving the MRI. --> We reviewed his pain medications and agreed to stop tramadol because it is no longer effective. I explained my reluctance to use long-term opioids, but we agreed on a very short course of oxycodone for severe, acute pain only, and we will try a different muscle relaxer, baclofen. (2) Leukocytosis: Code(s): D72.829 - Elevated white blood cell count, unspecified Category: Medical Qualifiers: Leukocytosis type: unspecified Qualified Code(s): D72.829 - Elevated white blood cell count, unspecified Plan: I also discussed his persistently high white blood cell count. I explained that while this could be from smoking, I am referring him to a environmental associate to ensure there are no other underlying causes, such as hematologic malignancy, although I noted this was less likely. (3) HTN (hypertension): Code(s): I10 - Essential (primary) hypertension Category: Medical Qualifiers: Hypertension type: primary hypertension Qualified Code(s): I10 - Essential (primary) hypertension Plan: Patient's blood pressure elevated today in office, could be related to pain in caffeine intake this morning. Will continue his current dose of antihypertensive medication with goal blood pressure to be below 130/80 (4) Tobacco dependence: Code(s): F17.200 - Nicotine dependence, unspecified, uncomplicated Category: Medical Plan: Patient does understand he needs to quit smoking though has found it very difficult do so. He has cut down his smoking though was not completely quit. Orders: Orders MR thoracic spine wo con Today M54.14 - Radiculopathy, thoracic region Referrals Hematology & Oncology Referral D72.829 - Elevated white blood cell count, unspecified Pain Management Referral M54.14 - Radiculopathy, thoracic region Medications: New baclofen 20 mg PO BID 20 tabs 0RF 10 days M54.14 - Radiculopathy, thoracic region oxycodone Partial Fill upon patient request. 10 mg PO BID PRN 8 tabs 0RF pain 4 days M54.14 - Radiculopathy, thoracic region lisinopril-hydrochlorothiazide 20-12.5 mg 1 tab PO DAILY 30 tabs 3RF 30 days I10 - Essential (primary) hypertension Discontinued cyclobenzaprine Discontinued Reason: Doctor's Order 10 mg PO BEDTIME PRN 7 tabs 0RF muscle spasm lisinopril Discontinued Reason: Doctor's Order 20 mg PO DAILY 90 tabs 1RF I10 - Essential (primary) hypertension tramadol Discontinued Reason: Doctor's Order 50 mg PO BID 3 days PRN 6 tabs 0RF pain
== END 2025-06-27 08:46 | disposition home or self-care (01) ==
LOC: HO.HMCH 08:00
PROVIDERS: PCP Physician Assistant; Visit Provider Physician Assistant
DX: M54.14 Radiculopathy, thoracic region (principal); D72.829 Elevated white blood cell count, unspecified; I10 Essential (primary) hypertension; F17.200 Nicotine dependence, unspecified, uncomplicated

== ENCOUNTER → 2025-06-27 07:59 | Outpatient (BNVA) | payer OTHER, SELFPAY | PROVIDERS: PCP Physician Assistant; Visit Provider Physician Assistant | DX: M54.14 Radiculopathy, thoracic region (principal); D72.829 Elevated white blood cell count, unspecified; I10 Essential (primary) hypertension; F17.200 Nicotine dependence, unspecified, uncomplicated; Z13.31 Encounter for screening for depression; Z71.6 Tobacco abuse counseling | CPT/HCPCS: 96127 ==